=== PATIENT | female | born 1975 | race Caucasian/White ===

== ENCOUNTER 2016-11-01 17:52 | Emergency (ER) | payer OTHER ==
[~2016-11-01] VITALS: Ht 162.6 cm; Wt 97.5 kg
[~2016-11-01 17:52] MED LIST: ALPR1TAB2 PO; BACL10TA4 PO; HYDR-4452 PO; LIRA6SOL SUBQ; METF500T PO; ZOLP10TA1 PO
[2016-11-01 18:03] VITALS: BP 124/90
--- NOTE | 2016-11-01 18:18 | NUR ---
Patient ambulated to bed 4. RN evaluating patient at bedside.
--- NOTE | 2016-11-01 18:20 | NUR ---
41 F C/O SHARP 10/10 GENERALIZED ABDOMINAL PAIN WITH N/V/DAND HEAD ACHE X 2 DAYS, AND SACRAL PAIN; S/P FALL 3 MONTHS AGO; PT DENIES ANY URINARY COMPLAINTS; AAOX4 WITH EVEN AND STEADY GAIT;RR ARE EVEN AND UNLABORED; PT DENIES ANY FEVER, CP, SOB, OR COUGH AT THIS TIME; VSS; PATIENT POSITIONED FOR COMFORT; HOB ELEVATED; BEDRAILS UP X2; BED DOWN. ER MD MADE AWARE OF PT STATUS.
[2016-11-01] MEDS ORDERED: KETOROLAC 30 MG/ML VIAL IM ONE (18:30)
[2016-11-01] MEDS ORDERED: diphenhydrAMINE 50 MG/ML VIAL IM ONE (18:30)
[2016-11-01] MEDS ORDERED: ONDANSETRON 4 MG ODT PO ONE (18:30)
[2016-11-01 19:08] LABS: BASOPHILS # (AUTO) 0.3 K/uL (0.00-0.22); EOSINOPHILS # (AUTO) 0.3 K/uL (0-0.4); HEMATOCRIT 44.9 % (36-48); HEMOGLOBIN 14.4 g/dL (12.0-16.0); MEAN CORPUSCULAR HEMOGLOBIN 27 pg (27-31); MEAN CORPUSCULAR HGB CONC 32 g/dL (33-37); MEAN CORPUSCULAR VOLUME 83 fL (80-94); MONOCYTES # (AUTO) 0.6 K/uL (0.8-1.0); NEUTROPHILS # (AUTO) 6.8 K/uL (1.8-7.7); PLATELET COUNT (AUTO) 322 K/uL (140-450); RED BLOOD CELL COUNT(AUTO) 5.39 MIL/uL (4.20-5.40); RED CELL DISTRIBUTION WIDTH 13.2 % (11.6-13.7)
--- NOTE | 2016-11-01 19:15 | NUR ---
GOT REPORT FROM FLETCHER MENDOZA. PT. RESTING IN BED, COMPLAINING OF PAIN. DR. PHOENIX MADE AWARE.
[2016-11-01 19:18] LABS: APPEARANCE,URINE CLEAR (CLEAR); BILIRUBIN,URINE NEGATIVE (NEGATIVE); BLOOD, URINE NEGATIVE (NEGATIVE); COLOR,URINE YELLOW (YELLOW); LEUKOCYTE ESTERASE ,URINE NEGATIVE (NEGATIVE); NITRITE, URINE NEGATIVE (NEGATIVE); PH,URINE 6.5 (5.0-9.0); UGLUCOSE 2+ (NEGATIVE)
[2016-11-01 19:25] LABS: CREATININE 0.8 mg/dL (0.6-1.3)
[2016-11-01 19:32] LABS: ALBUMIN 3.5 g/dL (3.4-5.0); TOTAL BILIRUBIN 0.2 mg/dL (0.0-1.0)
[2016-11-01 19:33] LABS: BARBITURATE, URINE POS. ng/ml (NEG <=200); BENZODIAZEPINE, URINE POS. ng/mL (NEG <=200); CANNABINOID, URINE NEG. ng/mL (NEG <=50); COCAINE, URINE NEG. ng/mL (NEG <=300); OPIATE, URINE POS. ng/mL (NEG <=2000); PHENCYCLIDINE SCREEN,URINE NEG. ng/mL (NEG <=25)
[2016-11-01] MEDS ORDERED: KETOROLAC 30 MG/ML VIAL IVP ONE (19:50)
[2016-11-01] MEDS ORDERED: NACL 0.9% 1,000 ML IV ONE (19:50)
[2016-11-01] MEDS ORDERED: ONDANSETRON 4 MG/2 ML VIAL IVP ONE (20:25)
--- NOTE | 2016-11-01 21:00 | NUR ---
Patient discharged with v/s stable. Written and verbal after care instructions given and explained. Patient alert, oriented and verbalized understanding of instructions. Ambulatory with steady gait. All questions addressed prior to discharge. ID band removed. Patient advised to follow up with PMD. Rx of LANTUS 100UNIT/ML given. Patient educated on indication of medication including possible reaction and side effects. Opportunity to ask questions provided and answered.
[2016-11-01 21:05] VITALS: BP 140/81
== END 2016-11-01 21:00 | disposition home or self-care (01) ==
LOC: MED 17:52
DX: R51 Headache (principal); E11.65 Type 2 diabetes mellitus with hyperglycemia; I10 Essential (primary) hypertension; Z90.710 Acquired absence of both cervix and uterus; Z79.84 Long term (current) use of oral hypoglycemic drugs; Z79.899 Other long term (current) drug therapy
CPT/HCPCS: 36415; 80053; 80305; 81003; 81025; 82948; 83690; 85025; 96361; 96374; 96375; 99284; J1200; J1885; J2405; J7030; S0119

== ENCOUNTER 2016-11-18 14:06 | Emergency (ER) | payer OTHER ==
[~2016-11-18] VITALS: Ht 165.1 cm; Wt 103.4 kg
[~2016-11-18 14:06] MED LIST changes: +ACET-787 PO; -HYDR-4452 PO
[2016-11-18 14:30] VITALS: BP 113/75
--- NOTE | 2016-11-18 15:34 | NUR ---
PATIENT IS A 41 YO FEMALE BIB SELF FOR HEADACHE AWAKE AND ALERT ABLE TO AMBULATE TOOK NORCO THIS AM WITHOUT RELIEF.
[2016-11-18] MEDS ORDERED: HYDROmorphone PFS 2 MG/ML SYR IM ONE (15:50)
[2016-11-18] MEDS ORDERED: diphenhydrAMINE 50 MG/ML VIAL IM ONE (15:50)
--- NOTE | 2016-11-18 16:04 | NUR ---
CURRENTLY HEADACHE IS 10/10 WITH NAUSEA---MEDICATED FOR PAIN CONTROL , WILL REASSESS IN 30MINS
[2016-11-18 17:01] VITALS: BP 132/69
--- NOTE | 2016-11-18 17:02 | NUR ---
Patient discharged with v/s stable. Written and verbal after care instructions given and explained. Patient verbalized understanding. Wheel Chair Assisted with to car. All questions addressed prior to discharge. Advised to follow up with PMD.
== END 2016-11-18 17:02 | disposition home or self-care (01) ==
LOC: MED 14:06
DX: G43.909 Migraine, unspecified, not intractable, without status migrainosus (principal); E11.9 Type 2 diabetes mellitus without complications; I10 Essential (primary) hypertension; Z90.710 Acquired absence of both cervix and uterus; Z88.8 Allergy status to other drugs, medicaments and biological substances
CPT/HCPCS: 96372; 99284; J1170; J1200

== ENCOUNTER 2016-12-21 13:52 | Inpatient (IN) | payer OTHER ==
[~2016-12-21] VITALS: Ht 165.1 cm; Wt 99.4 kg
[2016-12-21 13:57] VITALS: BP 151/79
--- NOTE | 2016-12-21 14:00 | NUR ---
PT AMBULATED TO BED 7.
--- NOTE | 2016-12-21 14:10 | NUR ---
41F BIB FAMILY C/O NAUSEA AND VOMITING WITH HEADACHE X 1 MONTH; PT STATES " I'VE BEEN VOMITING ALL DAY", BUT STATES NO DIARRHEA AT THIS TIME; ABDOMEN SOFT, NON-TENDER, ACTIVE BOWEL SOUNDS X 4 QUADRANTS; PT C/O ANTERIOR HEADACHE, PRESSURE, RADIATES "ALL OVER MY HEAD", 11/30 X 1 MONTH; PT STATES NO TRAUMA OR INJURY TO SITE AT THIS TIME; PT STATES NO VISION CHANGES OR BLURRY VISION AT THIS TIME; PT AA&OX4, PERRLA, BL LUNG SOUNDS CLEAR, RR EVEN/UNLABORED, SKIN IS WARM/DRY/INTACT AT THIS TIME; STEADY GAIT; TACHYCARDIA NOTED ON THE MONITOR AT THIS TIME; PT STATES NO SHORTNESS OF BREATH OR NO CHEST PAIN AT THIS TIME; PT PLACED ON MONITOR, RESTING IN BED WITH HOB ELEVATED AND IN LOWEST POSITION; POSITIONED FOR COMFORT; ER MD MADE AWARE OF STATUS. WILL CONTINUE TO MONITOR.
--- NOTE | 2016-12-21 14:16 | NUR ---
ER MD DR. GALLOWAY EVALUATING PT AT BEDSIDE.
[2016-12-21] MEDS ORDERED: NACL 0.9% 1,000 ML IV SCH (14:17)
[2016-12-21] MEDS ORDERED: MORPHINE SULFATE 4 MG/ML SYR IVP ONE (14:20)
[2016-12-21] MEDS ORDERED: MAG SULF 2000 MG/WATER PREMIX 50 ML IV ONE (14:20)
[2016-12-21] MEDS ORDERED: ONDANSETRON 4 MG/2 ML VIAL IVP ONE (14:20)
[2016-12-21 14:46] LABS: HEMATOCRIT 47.7 % (36-48); HEMOGLOBIN 15.6 g/dL (12.0-16.0); MEAN CORPUSCULAR HEMOGLOBIN 26 pg (27-31); MEAN CORPUSCULAR HGB CONC 33 g/dL (33-37); MEAN CORPUSCULAR VOLUME 81 fL (80-94); PLATELET COUNT (AUTO) 388 K/uL (140-450); RED BLOOD CELL COUNT(AUTO) 5.93 MIL/uL (4.20-5.40); WHITE BLOOD COUNT (AUTO) 18.3 K/uL (4.8-10.8)
[2016-12-21 14:55] LABS: APPEARANCE,URINE CLEAR (CLEAR); BLOOD, URINE 1+ (NEGATIVE); COLOR,URINE YELLOW (YELLOW); LEUKOCYTE ESTERASE ,URINE NEGATIVE (NEGATIVE); NITRITE, URINE NEGATIVE (NEGATIVE); UGLUCOSE 3+ (NEGATIVE)
[2016-12-21 14:58] LABS: BILIRUBIN,URINE NEGATIVE (NEGATIVE)
[2016-12-21 14:59] LABS: LYMPHOCYTES % (MANUAL) 17 % (20-46); MONOCYTES % (MANUAL) 5 % (5-12)
[2016-12-21 15:03] LABS: BARBITURATE, URINE POS. ng/ml (NEG <=200); BENZODIAZEPINE, URINE NEG. ng/mL (NEG <=200); CANNABINOID, URINE NEG. ng/mL (NEG <=50); COCAINE, URINE NEG. ng/mL (NEG <=300); OPIATE, URINE NEG. ng/mL (NEG <=2000); PHENCYCLIDINE SCREEN,URINE NEG. ng/mL (NEG <=25)
[2016-12-21] MEDS ORDERED: cefTRIAXone 2,000 MG in DEXTROSE 5% 100 ML IV ONE (15:10)
[2016-12-21] MEDS ORDERED: NACL 0.9% 1,000 ML IV ONE (15:10)
[2016-12-21 15:11] LABS: ALBUMIN 4.3 g/dL (3.4-5.0); ANION GAP 26.2 (8-16); CARBON DIOXIDE 16.5 mmol/L (21-32); CREATININE 1.3 mg/dL (0.6-1.3); POTASSIUM 4.7 mmol/L (3.5-5.1); TOTAL BILIRUBIN 0.8 mg/dL (0.0-1.0)
[2016-12-21] MEDS ORDERED: INSULIN HUMAN REGULAR 100 UNITS in NACL 0.9% 100 ML IV ONE (15:20)
[2016-12-21] MEDS ORDERED: POTASSIUM CHL 20 MEQ/NACL 0.9% 1,000 ML IV ONE (15:20)
[2016-12-21] MEDS ORDERED: cefTRIAXone 2,000 MG VIAL ONE (15:22)
[2016-12-21 15:26] LABS: RBC,URINE 0-5 (RARE) /HPF (0-5); WBC,URINE 0-5 (RARE) /HPF (0-5)
--- NOTE | 2016-12-21 15:29 | NUR ---
PT TAKEN TO CT VIA [facility] ACCOMPANIED BY [facility] AT THIS TIME.
--- NOTE | 2016-12-21 16:10 | NUR ---
ER MD DR. GALLOWAY AT BEDSIDE FOR LUMBAR PUNCTURE PROCEDURE.
[2016-12-21] MEDS ORDERED: LIDOCAINE 1% ***ER ONLY *** 50 ML ONE (16:19)
--- NOTE | 2016-12-21 16:24 | NUR ---
INCREASED MAGNESIUM TO FINISH IN 30 MINUTES PER ER MD DR. GALLOWAY VERBAL ORDER. PT POSITIONED FOR COMFORT; VSS AT THIS TIME; WILL CONTINUE TO MONITOR.
[2016-12-21 16:31] LABS: PROTHROMBIN TIME 10.3 secs (10.8-13.4)
--- NOTE | 2016-12-21 16:35 | NUR ---
INCREASE ROCEPHIN TO FINISH IN 30 MINUTES PER ER MD DR. GALLOWAY VERBAL ORDER.
--- NOTE | 2016-12-21 17:09 | NUR ---
PER ER MD DR. GALLOWAY, SPOKE WITH ADMITING PHYSICIAN DR. EVANGELISTA, PT TO BE ON INSULIN DRIP FOR 1 HR, THEN PATIENT MAY GO TO TELEMETRY ON A SLIDING SCALE; PT AA&O WITH RR EVEN/UNLABORED; WILL CONTINUE TO MONITOR.
[2016-12-21 17:24] LABS: CSF GLUCOSE 280 mg/dL (40-70)
--- NOTE | 2016-12-21 17:30 | NUR ---
PT APPEARS TO BE RESTING COMFORTABLY IN BED; VSS; POSITIONED FOR COMFORT; RR EVEN/UNLABORED; WILL CONTINUE TO MONITOR.
[2016-12-21] MEDS ORDERED: HYDROcodone/APAP 5/325 MG 1 TAB TAB PO PRN (18:00)
[2016-12-21] MEDS ORDERED: ACETAMINOPHEN 325 MG TAB PO PRN (18:00)
[2016-12-21] MEDS ORDERED: DEXTROSE 50% 50 ML SYR IVP PRN (18:00)
[2016-12-21] MEDS ORDERED: LORazepam 2 MG/ML VIAL IVP PRN (18:00)
--- NOTE | 2016-12-21 18:14 | NUR ---
REPORT GIVEN TO ARMANDO BYNUM.
--- NOTE | 2016-12-21 18:15 | NUR ---
RECEIVED REPORT FROM ER NURSE QI. WILL GET ROOM READY AND AWAIT FOR PT ARRIVAL TO UNIT.
--- NOTE | 2016-12-21 18:15 | NUR ---
Patient will be admitted to care of DR. MORALES. Admited to TELEMETRY. Will go to room 120B. Belongings list completed. Report to FLETCHER HARMON.
--- NOTE | 2016-12-21 18:30 | NUR ---
PT ARRIVED TO [facility] VIA [facility] ACCOMPANIED BY RNS, AND PROFESSOR OF THEOLOGY. PT AMBULATED FROM [facility] TO BED WITH ASSIST. PT PUT ON TELE MONITOR. ID BAND APPLIED. MRSA SCREEN DONE. VS: HR 120 BP 143/75 O2 SAT 98% ON RA, TEMP 98.7 TEMPORAL ARTERY, RR 24. IV INFUSING NS-KCL 1,000ML BAG AT 200ML/HR TO LEFT UPPER ARM. INSTRUCTED PT TO USE CALL LIGHT FOR HELP AND WHEN NEED TO GET OUT OF BED FOR SAFETY. PT VERBALIZED UNDERSTANDING. BED IN LOW POSITION. WHEELS LOCKED, CALL LIGHT WITHIN REACH. WILL CONTINUE TO MONITOR.
[2016-12-21 19:00] VITALS: BP 156/87
--- NOTE | 2016-12-21 19:08 | NUR ---
ENDORSED PT TO TEAM OTR TRUCK DRIVER NURSE SOLE AT BEDSIDE FOR CONTINUITY OF CARE. PT IS AWAKE AND ORIENTED, IN STABLE CONDITION.
--- NOTE | 2016-12-21 19:10 | NUR ---
Admitted from ER, with chief complaint of HEADACHE AND NAUSEA, DX LEUKOCYTOSIS, UNCONTROLLED HYPERGLYCEMIA. 41 y/o, Female, AOX4, DROWSY AT TIMES, ABLE TO SPEAK FULL SENTENCES, ABLE TO VERBALIZE NEEDS. PT C/O NAUSEA, WILL MEDICATE. PT C/O HEADACHE AND GENERALIZED WEAKNESS, PT REFUSES PAIN MEDICATION AT THIS TIME. PT DENIES CHEST PAIN, SOB OR S/S OF ACUTE DISTRESS. FOOD AND BEVERAGE CASHIER IN PLACE. LEFT KNEE BRUISE NOTED. IV ACCESS TO LEFT UPPER ARM 22G AND RIGHT AC 22G ASYMPTOMATIC, PATENT AND INTACT. DISCUSSED AND REVIEWED PLAN OF CARE WITH PT. PT STATED "OK," WILL CONTINUE WITH CONSTANT REINFORCEMENT. oriented to call light, bed, phone,television, bathroom, smoking policy, visiting hours, procedures, ID bracelet on. Belongings list checked. ALL NEEDS MET. SAFETY MEASURES ENSURED. CALL LIGHT WITHIN REACH. WILL CONTINUE TO MONITOR.
[2016-12-21] MEDS ORDERED: PNEUMOCOCCAL VACCINE 23 MCG/0.5 ML VIAL IMVAC PRN (20:00)
[2016-12-21] MEDS ORDERED: INFLUENZA VIRUS VACCINE QUAD 0.5 ML SYR IMVAC PRN (20:00)
[2016-12-21] MEDS: NACL 0.9% 1,000 ML IV SCH (20:20)
[2016-12-21] MEDS: BLOOD GLUCOSE MONITORING 1 DEV DEV FS SCH (20:20)
[2016-12-21] MEDS: INSULIN LISPRO SLIDING SCALE 100 UNITS/ML VIAL SUBQ PRN (20:23)
[2016-12-21] MEDS: ZOLPIDEM 10 MG TAB PO SCH (20:24)
[2016-12-21] MEDS: BACLOFEN 10 MG TAB PO SCH (20:24)
[2016-12-21] MEDS: ALPRAZolam 0.5 MG TAB PO SCH (20:24)
[2016-12-21] MEDS: ONDANSETRON 4 MG/2 ML VIAL IVP PRN (20:37)
--- NOTE | 2016-12-21 20:37 | NUR ---
PT C/O NAUSEA, ADMINISTERED ZOFRAN IVP PRN ORDERED WITH EDUCATION. BLOOD SUGAR 332, INSULIN COVERAGE ADMINISTERED WITH EVENING SNACK. REMAINING DUE MEDS ADMINISTERED WITH EDUCATION. PT STATED "OK," TOLERATED MEDS WELL. ALL NEEDS MET. IVF INFUSING WELL. SAFETY MEASURES ENSURED. CALL LIGHT WITHIN REACH. WILL CONTINUE TO MONITOR.
[2016-12-21 22:00] VITALS: BP 123/68
[2016-12-22] VITALS: BP 124/71
--- NOTE | 2016-12-22 00:01 | NUR ---
PT SLEEPING COMFORTABLY, AROUSABLE TO NAME, NO S/S OF ACUTE DISTRESS. ALL NEEDS MET. IVF INFUSING WELL. SAFETY MEASURES ENSURED. CALL LIGHT WITHIN REACH. WILL CONTINUE TO MONITOR.
[2016-12-22] MEDS: MORPHINE SULFATE 2 MG/ML SYR IVP PRN ×3 (02:22→20:46)
[2016-12-22] MEDS: ONDANSETRON 4 MG/2 ML VIAL IVP PRN ×3 (02:26→20:39)
--- NOTE | 2016-12-22 02:26 | NUR ---
PT C/O NAUSEA, ADMINISTERED ZOFRAN IVP PRN ORDERED WITH EDUCATION. PT C/O HEADACHE, ADMINISTERED MORPHINE IVP PRN ORDERED WITH EDUCATION. ASSISTED PT TO RESTROOM, PT ABLE TO AMBULATE WITH STANDBY ASSIST, REPORTS WEAKNESS. ALL NEEDS MET. IVF INFUSING WELL. SAFETY MEASURES ENSURED. CALL LIGHT WITHIN REACH. WILL CONTINUE TO MONITOR.
[2016-12-22] MEDS: NACL 0.9% 1,000 ML IV SCH ×3 (03:59→23:59)
[2016-12-22 04:00] VITALS: BP 146/90
--- NOTE | 2016-12-22 04:35 | NUR ---
PT SLEEPING COMFORTABLY, NO S/S OF ACUTE DISTRESS, RESPIRATIONS EVEN AND UNLABORED. ALL NEEDS MET. IVF INFUSING WELL. SAFETY MEASURES ENSURED. CALL LIGHT WITHIN REACH. WILL CONTINUE TO MONITOR.
[2016-12-22] MEDS: INSULIN LISPRO SLIDING SCALE 100 UNITS/ML VIAL SUBQ PRN ×4 (06:09→21:03)
[2016-12-22] MEDS: BLOOD GLUCOSE MONITORING 1 DEV DEV FS SCH ×4 (06:09→20:26)
--- NOTE | 2016-12-22 07:15 | NUR ---
ENDORSED PLAN OF CARE TO AM NURSE. CONDITION STABLE.
--- NOTE | 2016-12-22 07:20 | NUR ---
REPORT RECEIVED FROM HUB CUTTER APPRENTICE AT PT BEDSIDE. PT PUT ON TELE MONITOR. IV NOTED TO THE TO LEFT UPPER ARM, INTACT, PATENT, AND INFUSING WELL WITH NS. BED IN LOW POSITION, CALL LIGHT WITHIN REACH. WILL CONTINUE TO MONITOR.
[2016-12-22 07:41] LABS: HEMATOCRIT 44.6 % (36-48); HEMOGLOBIN 14.7 g/dL (12.0-16.0); MEAN CORPUSCULAR HEMOGLOBIN 27 pg (27-31); MEAN CORPUSCULAR HGB CONC 33 g/dL (33-37); MEAN CORPUSCULAR VOLUME 81 fL (80-94); PLATELET COUNT (AUTO) 349 K/uL (140-450); RED BLOOD CELL COUNT(AUTO) 5.51 MIL/uL (4.20-5.40); RED CELL DISTRIBUTION WIDTH 13.3 % (11.6-13.7); WHITE BLOOD COUNT (AUTO) 16.1 K/uL (4.8-10.8)
[2016-12-22 08:00] LABS: ALBUMIN 3.6 g/dL (3.4-5.0); ANION GAP 17.3 (8-16); CARBON DIOXIDE 21.6 mmol/L (21-32); CREATININE 0.9 mg/dL (0.6-1.3); MAGNESIUM 2.1 mg/dL (1.8-2.4); PHOSPHORUS 1.6 mg/dL (2.5-4.9); POTASSIUM 3.9 mmol/L (3.5-5.1); TOTAL BILIRUBIN 0.5 mg/dL (0.0-1.0)
[2016-12-22] MEDS ORDERED: metFORMIN 500 MG TAB PO SCH (08:00)
[2016-12-22 08:08] LABS: LYMPHOCYTES % (MANUAL) 16 % (20-46); MONOCYTES % (MANUAL) 6 % (5-12)
[2016-12-22 08:11] VITALS: BP 145/89
[2016-12-22] MEDS ORDERED: LIRAGLUTIDE 1.8 MG SUBQ SCH (09:00)
--- NOTE | 2016-12-22 09:03 | NUR ---
PATIENT HAS BEEN SCREENED AND CATEGORIZED HIGH NUTRITION RISK. PATIENT WILL BE SEEN WITHIN 1-2 DAYS OF ADMISSION. 12/22/16 -12/23/[address]
[2016-12-22] MEDS: BACLOFEN 10 MG TAB PO SCH ×2 (09:07→20:58)
[2016-12-22] MEDS: ALPRAZolam 0.5 MG TAB PO SCH ×2 (09:08→20:59)
[2016-12-22] MEDS: HYDROcodone/APAP 10/325 MG 1 TAB TAB PO SCH ×3 (09:08→16:36)
[2016-12-22] MEDS: ENOXAPARIN 40 MG/0.4 ML SYR SUBQ SCH (09:08)
--- NOTE | 2016-12-22 09:45 | NUR ---
CHANGED PT DIET TO NPO EXCEPT MEDS FOR US ABD.
--- NOTE | 2016-12-22 12:30 | NUR ---
TOOK PT TO RESTROOM FOR URINATION. MINIMAL ASSISTANCE PROVIDED. PT REFUSED TO WEAR YELLOW SOCKS, PREFERRED HER OWN SLIPPERS. BED ALARM IS ACTIVATED. WILL CONTINUE TO MONITOR.
--- NOTE | 2016-12-22 12:37 | NUR ---
CM NOTE CONCURRENT REVIEW FAXED TO [facility] ([phone], ATTN: HELLEN [phone]) AND [facility] (FAX: [phone], C: [phone])
--- NOTE | 2016-12-22 13:02 | NUR ---
12/22/16 RD INITIAL ASSESSMENT COMPLETED PLEASE REFER TO NUTRITION ASSESSMENT UNDER CARE ACTIVITY FOR ESTIMATED NUTRITIONAL NEEDS. 1. CONTINUE NPO MEDICALLY NECESSARY PER MD 2. WHEN APPROPRIATE AD[facility]ANCE [facility] [address] PROVIDED PT WITH DM DIET EDUCATIONAL HANDOUTS. 4. RD TO FOLLOW-UP 3-5 DAYS, MODERATE RISK MONICA [address]VER RD
[2016-12-22 13:09] VITALS: BP 136/78
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
--- NOTE | 2016-12-22 16:04 | NUR ---
US ABD WAS DONE AT BEDSIDE.
[2016-12-22 17:39] VITALS: BP 155/101
--- NOTE | 2016-12-22 18:00 | NUR ---
PT EATING DINNER, FAMILY AT BEDSIDE. NO S/S OF ACUTE DISTRESS NOTED. WILL CONTINUE TO MONITOR.
[2016-12-22] MEDS ORDERED: SODIUM PHOS / POTASSIUM PHOS 1 PKT PDR PO SCH (19:13)
--- NOTE | 2016-12-22 19:27 | NUR ---
ENDORSED PT TO THE FILM PROJECTOR OPERATOR NURSE. PT IS IN STABLE CONDITION, WITHOUT S/S OF DISTRESS.
--- NOTE | 2016-12-22 19:35 | NUR ---
RECEIVED REPORT FROM DAY RN, PATIENT IS USING HER CELLPHONE AT THIS TIME, NO S/S OF ACUTE DISTRESS NOTED, IV PATENT AND INTACT, INFUSING NS AT 100ML/HR, CALL LIGHT WITHIN REACH, SAFETY MEASURE ENSURED, WILL CONTINUE TO MONITOR.
[2016-12-22 20:00] VITALS: BP 143/89
[2016-12-22] MEDS: ZOLPIDEM 10 MG TAB PO SCH (20:59)
[2016-12-22] MEDS ORDERED: INSULIN DETEMIR 100 UNITS/ML 10 ML VIAL SUBQ SCH ×2 (21:00)
--- NOTE | 2016-12-22 21:13 | NUR ---
DUE MEDICATION GIVEN, PATIENT TOLERATED WELL. NO S/S OF ACUTE DISTRESS NOTED, RESPIRATION EVEN AND UNLABORED, WILL CONTINUE TO MONITOR.
--- NOTE | 2016-12-22 23:40 | NUR ---
IV INFILTRATED. UNABLE TO START A NEW IV, INFORMED CHARGE NURSE. CHARGE NURSE WILL START A NEW IV.
[2016-12-23] VITALS: BP 133/78
--- NOTE | 2016-12-23 00:35 | NUR ---
INFORMED ER NURSE REGARDING IV INFILTRATION. THE ER CHARGE NURSE IS AWARE AND WILL COME TO START A NEW IV
--- NOTE | 2016-12-23 01:30 | NUR ---
NEW IV 20G RT AC. PATIENT TOLERATED WELL.
[2016-12-23] MEDS: MORPHINE SULFATE 2 MG/ML SYR IVP PRN (02:53)
[2016-12-23] MEDS: ONDANSETRON 4 MG/2 ML VIAL IVP PRN (02:55)
--- NOTE | 2016-12-23 02:55 | NUR ---
PATIENT STATED HEADACHE 6/10, BP 134/87, HR 94, MORPHINE GIVEN ORDERED. WILL CONTINUE TO MONITOR.
[2016-12-23 04:00] VITALS: BP 127/75
--- NOTE | 2016-12-23 04:08 | NUR ---
PATIENT WAS SLEEPING, EASY TO AROUSE. VITAL SIGNS TAKEN, WITHIN NORMAL RANGE. NO S/S OF ACUTE DISTRESS NOTED, RESPIRATION EVEN AND UNLABORED, CALL LIGHT WITHIN REACH, SAFETY MEASURE ENSURED, WILL CONTINUE TO MONITOR.
[2016-12-23 06:14] LABS: BASOPHILS # (AUTO) 0.2 K/uL (0.00-0.22); BASOPHILS % (AUTO) 2.1 % (0.0-2.0); EOSINOPHILS # (AUTO) 0.2 K/uL (0-0.4); EOSINOPHILS % (AUTO) 2.2 % (0.0-4.0); HEMATOCRIT 39.9 % (36-48); HEMOGLOBIN 13.5 g/dL (12.0-16.0); LYMPHOCYTES # (AUTO) 3.9 K/uL (2.5-16.5); LYMPHOCYTES % (AUTO) 40.9 % (20.5-51.1); MEAN CORPUSCULAR HEMOGLOBIN 27 pg (27-31); MEAN CORPUSCULAR HGB CONC 34 g/dL (33-37); MEAN CORPUSCULAR VOLUME 80 fL (80-94); MONOCYTES # (AUTO) 0.7 K/uL (0.8-1.0); MONOCYTES % (AUTO) 7.9 % (1.7-9.3); NEUTROPHILS # (AUTO) 4.4 K/uL (1.8-7.7); NEUTROPHILS % (AUTO) 46.9 % (42.2-75.2); PLATELET COUNT (AUTO) 274 K/uL (140-450); RED CELL DISTRIBUTION WIDTH 12.8 % (11.6-13.7); WHITE BLOOD COUNT (AUTO) 9.4 K/uL (4.8-10.8)
[2016-12-23] MEDS: INSULIN LISPRO SLIDING SCALE 100 UNITS/ML VIAL SUBQ PRN (06:32)
[2016-12-23] MEDS: BLOOD GLUCOSE MONITORING 1 DEV DEV FS SCH ×2 (06:33→12:14)
[2016-12-23 06:40] LABS: ALBUMIN 3.1 g/dL (3.4-5.0); ANION GAP 12.2 (8-16); CARBON DIOXIDE 27.1 mmol/L (21-32); CREATININE 0.5 mg/dL (0.6-1.3); POTASSIUM 3.3 mmol/L (3.5-5.1); TOTAL BILIRUBIN 0.5 mg/dL (0.0-1.0)
--- NOTE | 2016-12-23 06:52 | NUR ---
PATIENT IS SLEEPING, EASY TO AROUSE, NO S/S OF ACUTE DISTRESS NOTED, RESPIRATION EVEN AND UNLABORED, CALL LIGHT WITHIN REACH, SAFETY MEASURE ENSURED, WILL CONTINUE TO MONITOR.
--- NOTE | 2016-12-23 07:15 | NUR ---
ENDORSED PLAN OF CARE TO DAY FLETCHER CHOU, PATIENT IS IN STABLE CONDITION. NO S/S OF DISTRESS.
--- NOTE | 2016-12-23 07:21 | NUR ---
RECEIVED PT IN BED. AWAKE. ALERT ORIENTEDX4. NO SOB NOTED. DENIES ANY PAIN OR DISCOMFORT AT THIS TIME. PT AMBULATORY. SAFETY PRECAUTION IN PLACE. CALL LIGHT WITHIN REACH.
--- NOTE | 2016-12-23 07:59 | NUR ---
PT COMPLAINS OF DIFFICULTY/PAINFUL SWALLOWING. DR. KOEHLER MADE AWARE, AND MADE AWARE OF POTASSIUM LEVEL 3.3. WITH ORDERS MADE AND CARRIED OUT TORB.
[2016-12-23 08:00] VITALS: BP 140/87
[2016-12-23] MEDS ORDERED: POTASSIUM CHLORIDE 10 MEQ TABER PO SCH (08:30)
[2016-12-23] MEDS: BACLOFEN 10 MG TAB PO SCH (08:33)
[2016-12-23] MEDS: HYDROcodone/APAP 10/325 MG 1 TAB TAB PO SCH (08:34)
[2016-12-23] MEDS: ALPRAZolam 0.5 MG TAB PO SCH (08:34)
[2016-12-23] MEDS: ENOXAPARIN 40 MG/0.4 ML SYR SUBQ SCH (08:40)
[2016-12-23] MEDS ORDERED: SODIUM PHOS / POTASSIUM PHOS 1 PKT PDR PO SCH (09:00)
--- NOTE | 2016-12-23 09:19 | NUR ---
CM NOTE CONCURRENT REVIEW FAXED TO [facility] [phone], ATTN: HELLEN # [phone]
[2016-12-23] MEDS ORDERED: GABA400C PO (09:53)
[2016-12-23] MEDS: NACL 0.9% 1,000 ML IV SCH (09:59)
[2016-12-23 11:45] VITALS: BP 142/93
--- NOTE | 2016-12-23 11:49 | NUR ---
DISCARDED DILAUDED 0.5MG IVP TAKEN FROM PYXIS PER PACU ORDER. WITNESSED BY ANOTHER NURSE. DR. MON MADE AWARE THAT PT STILL COMPLAINS OF PAIN AFETR DOSE OF DILAUDID OERED 0.5MG FOR Q3 HRS WAS GIVEN. AND DR. MON MADE AWARE OF MAGNESIUM LEVEL 1.5, AND MADE AWARE THAT PT REQUESTED TO SEE PT. MD TO SEE PT. Addendum: 12/23/16 at 1151 by Malorie Christian RN DISREGARD ABOVE DOCUMENTATION. WRONG PT.
--- NOTE | 2016-12-23 12:10 | NUR ---
DISCHARGE TEACHINGS AND HEALTH INSTRUCTIONS EXPLAINED AND GIVEN TO PT. PT VERBALIZED UNDERSTANDING. PT SIGNED DISCHARGE PAPERS. AT BEDSIDE. REMINDED TO FOLLOW UP WITH PCP WITHIN 7 DAYS. PROVIDED WITH PRESCRIPTION. NO SOB NOTED. DENIES ANY PAIN OR DISCOMFORT AT THIS TIME. IV CANNULA REMOVED AND INTACT. NAME ARMBAND REMOVED.
--- NOTE | 2016-12-23 12:15 | NUR ---
PT REFUSED INSULIN COVERAGE SINCE SHE IS GOING HOME. VERBALIZED UNDERSTANDING REGARDING REFUSAL FOR INSULIN. AT BEDSIDE. PT GETTING READY FOR DISCHARGE.
--- NOTE | 2016-12-23 12:30 | NUR ---
PT WHEELED OUT TO THE HOSPITAL PARKING LOT PER PAYROLL CONSULTANT ASSIST, GOING TO THEIR PRIVATE OWNED VEHICLE WITH . NO SOB NOTED. DENIES ANY PAIN OR DISCOMFORT AT THIS TIME. PT DISCHARGED ON STABLE CONDITION.
== END 2016-12-23 12:30 | disposition home or self-care (01) | DRG 420 ==
LOC: MED 13:52 → MTU 18:06
PROVIDERS: ADMIT Hospitalist; ATTEND Hospitalist
PROC: 009U3ZX Drainage of Spinal Canal, Percutaneous Approach, Diagnostic (ICD-10-PCS; principal; 2016-12-21)
PROC: 3E0234Z Introduction of Serum, Toxoid and Vaccine into Muscle, Percutaneous Approach (ICD-10-PCS; 2016-12-23)
PROC: 3E0234Z Introduction of Serum, Toxoid and Vaccine into Muscle, Percutaneous Approach (ICD-10-PCS; 2016-12-23)
DX: E11.10 Type 2 diabetes mellitus with ketoacidosis without coma (principal); N17.9 Acute kidney failure, unspecified; R63.0 Anorexia; D72.829 Elevated white blood cell count, unspecified; E11.9 Type 2 diabetes mellitus without complications; I10 Essential (primary) hypertension; G43.909 Migraine, unspecified, not intractable, without status migrainosus; E86.0 Dehydration; E66.9 Obesity, unspecified; R79.89 Other specified abnormal findings of blood chemistry; Z91.018 Allergy to other foods; Z68.36 Body mass index [BMI] 36.0-36.9, adult; Z90.49 Acquired absence of other specified parts of digestive tract; Z98.891 History of uterine scar from previous surgery; Z23 Encounter for immunization; Z79.899 Other long term (current) drug therapy; Z79.84 Long term (current) use of oral hypoglycemic drugs
CPT/HCPCS: 36415; 36600; 62270; 70450; 76700; 80053; 80305; 81001; 81025; 82009; 82803; 82948; 83690; 83735; 84100; 84157; 84484; 84703; 85025; 85610; 85730; 87040; 87070; 87081; 87086; 87205; 90658; 90732; 96365; 96368; 96375; 99291; J0696; J1650; J1815; J2001; J2270; J2405; J3475; J7030; Q0092

== ENCOUNTER 2017-06-30 19:38 | Emergency (ER) | payer OTHER ==
[~2017-06-30] VITALS: Ht 165.1 cm; Wt 114.8 kg
[~2017-06-30 19:38] MED LIST changes: +GABA400C PO
[2017-06-30 19:46] VITALS: BP 137/50
--- NOTE | 2017-06-30 19:55 | NUR ---
PT. BIB VIA W/C TO [facility]
--- NOTE | 2017-06-30 21:03 | NUR ---
PT AT XRAY AT THIS TIME. WHEN SHE RETURNS PT WILL BE PLACED IN BED 1
--- NOTE | 2017-06-30 21:20 | NUR ---
PT TO BED 1 AFTER XRAY
--- NOTE | 2017-06-30 21:30 | NUR ---
PATIENT PRESENTS TO ED WITH C/O PAIN TO BACK OF HEAD AND GENERALIZED BODY PAIN S/P FALL THIS AM AT HOME AROUND 10AM. PT TOOK NORCO AND BACLOFEN AT HOME THIS AM. MED HX: DM/INSOMNIA/ANXIETY PT DENIES N/V/D; SKIN IS PINK/WARM/DRY; AAOX4; LUNGS CLEAR BL; HR EVEN AND REGULAR; PT DENIES ANY FEVER, CP, SOB, OR COUGH AT THIS TIME; PATIENT STATES PAIN OF 10/10 AT THIS TIME; PATIENT POSITIONED FOR COMFORT; HOB ELEVATED; BEDRAILS UP X2; BED DOWN. ER MD MADE AWARE OF PT STATUS.
[2017-06-30] MEDS ORDERED: HUMSLIDE (21:41)
[2017-06-30] MEDS ORDERED: ALPR2TAB1 PO (21:41)
[2017-06-30] MEDS ORDERED: INSU100S22 SC (21:41)
[2017-06-30] MEDS ORDERED: GABA300C PO (21:41)
[2017-06-30] MEDS ORDERED: MORPHINE SULFATE 4 MG/ML SYR IM ONE (23:25)
[2017-06-30 23:53] VITALS: BP 129/91
== END 2017-06-30 23:52 | disposition home or self-care (01) ==
LOC: MED 19:38
DX: S92.354A Nondisplaced fracture of fifth metatarsal bone, right foot, initial encounter for closed fracture (principal); Z88.8 Allergy status to other drugs, medicaments and biological substances; E11.9 Type 2 diabetes mellitus without complications; Z90.49 Acquired absence of other specified parts of digestive tract; Z79.899 Other long term (current) drug therapy; W18.39XA Other fall on same level, initial encounter; Y93.89 Activity, other specified; Y99.8 Other external cause status; Y92.89 Other specified places as the place of occurrence of the external cause
CPT/HCPCS: 73562; 73610; 73630; 96372; 99284; J2270

== ENCOUNTER 2017-07-22 17:11 | Emergency (ER) | payer OTHER ==
[~2017-07-22] VITALS: Ht 165.1 cm; Wt 112.2 kg
[~2017-07-22 17:11] MED LIST changes: -ALPR1TAB2 PO; +ALPR2TAB1 PO; +GABA300C PO; -GABA400C PO; +HUMSLIDE; +INSU100S22 SC; -LIRA6SOL SUBQ; -METF500T PO
[2017-07-22 17:16] VITALS: BP 134/65
--- NOTE | 2017-07-22 17:23 | NUR ---
PATIENT AMBULATED TO ER BED 4
--- NOTE | 2017-07-22 17:24 | NUR ---
REPORT GIVEN TO FLETCHER KATE
--- NOTE | 2017-07-22 17:26 | NUR ---
PATIENT PRESENTS TO ED WITH C/O RT KNEE AND RT 5TH DIGIT OF FOOT PAIN; SEEN ON 06/30/2017 FOR METATARSAL FX. HX; DM, ANXIETY . PATIENT STATES PAIN OF 10/10 AT THIS TIME; VSS; PATIENT POSITIONED FOR COMFORT; HOB ELEVATED; BEDRAILS UP X2; BED DOWN. ER MD MADE AWARE OF PT STATUS.
[2017-07-22] MEDS ORDERED: KETOROLAC 60 MG/2 ML VIAL IM ONE (17:50)
[2017-07-22] MEDS ORDERED: MORPHINE SULFATE 2 MG/ML SYR IM ONE (17:50)
[2017-07-22 18:18] VITALS: BP 134/65
== END 2017-07-22 18:18 | disposition home or self-care (01) ==
LOC: MED 17:11
DX: S92.354D Nondisplaced fracture of fifth metatarsal bone, right foot, subsequent encounter for fracture with routine healing (principal); M25.461 Effusion, right knee; E11.9 Type 2 diabetes mellitus without complications; Z79.4 Long term (current) use of insulin; Z91.048 Other nonmedicinal substance allergy status; X58.XXXD Exposure to other specified factors, subsequent encounter
CPT/HCPCS: 29505; 96372; 99284; J1885; J2270

== ENCOUNTER 2017-07-24 11:39 | Emergency (ER) | payer OTHER ==
[~2017-07-24] VITALS: Ht 165.1 cm; Wt 110.7 kg
[2017-07-24 12:07] VITALS: BP 159/97
[2017-07-24] MEDS ORDERED: NACL 0.9% 1,000 ML IV SCH (12:32)
[2017-07-24] MEDS ORDERED: ONDANSETRON 4 MG/2 ML VIAL IVP ONE (12:35)
[2017-07-24 13:11] LABS: BASOPHILS # (AUTO) 0.1 K/uL (0.00-0.22); BASOPHILS % (AUTO) 0.8 % (0.0-2.0); EOSINOPHILS # (AUTO) 0.2 K/uL (0-0.4); EOSINOPHILS % (AUTO) 1.7 % (0.0-4.0); HEMATOCRIT 43.4 % (36-48); HEMOGLOBIN 14.3 g/dL (12.0-16.0); LYMPHOCYTES # (AUTO) 2.3 K/uL (2.5-16.5); MEAN CORPUSCULAR HEMOGLOBIN 25 pg (27-31); MEAN CORPUSCULAR HGB CONC 33 g/dL (33-37); MEAN CORPUSCULAR VOLUME 77.3 fL (80-94); MONOCYTES # (AUTO) 0.6 K/uL (0.8-1.0); MONOCYTES % (AUTO) 7.1 % (1.7-9.3); NEUTROPHILS # (AUTO) 5.8 K/uL (1.8-7.7); NEUTROPHILS % (AUTO) 64.4 % (42.2-75.2); PLATELET COUNT (AUTO) 297 K/uL (140-450); RED BLOOD CELL COUNT(AUTO) 5.62 MIL/uL (4.20-5.40); RED CELL DISTRIBUTION WIDTH 14.9 % (11.6-13.7)
[2017-07-24 13:27] LABS: APPEARANCE,URINE CLEAR (CLEAR); BILIRUBIN,URINE NEGATIVE (NEGATIVE); BLOOD, URINE NEGATIVE (NEGATIVE); COLOR,URINE YELLOW (YELLOW); LEUKOCYTE ESTERASE ,URINE NEGATIVE (NEGATIVE); NITRITE, URINE NEGATIVE (NEGATIVE); UGLUCOSE 3+ (NEGATIVE)
[2017-07-24 13:31] LABS: ALBUMIN 3.5 g/dL (3.4-5.0); ANION GAP 17.3 (8-16); CARBON DIOXIDE 19.7 mmol/L (21-32); CREATININE 0.8 mg/dL (0.6-1.3); TOTAL BILIRUBIN 0.2 mg/dL (0.0-1.0)
[2017-07-24] MEDS ORDERED: NACL 0.9% 1,000 ML IV ONE ×2 (14:00)
[2017-07-24] MEDS ORDERED: INSULIN REGULAR, HUMAN 100 UNIT/ML VIAL SUBQ ONE (14:00)
[2017-07-24] MEDS ORDERED: POTASSIUM CHLORIDE 10 MEQ TABER PO ONE (14:00)
[2017-07-24 18:43] VITALS: BP 141/82
== END 2017-07-24 18:43 | disposition home or self-care (01) ==
LOC: MED 11:39
DX: S89.91XA Unspecified injury of right lower leg, initial encounter (principal); E11.65 Type 2 diabetes mellitus with hyperglycemia; E86.0 Dehydration; Z91.048 Other nonmedicinal substance allergy status
CPT/HCPCS: 36415; 70450; 80053; 81003; 81025; 82150; 82948; 83690; 84484; 84703; 85025; 93005; 96361; 96374; 99285; J1815; J2405; J7030; 96372

== ENCOUNTER 2017-07-29 14:38 | Inpatient (IN) | payer OTHER ==
[~2017-07-29] VITALS: Ht 157.5 cm; Wt 95.3 kg
--- NOTE | 2017-07-29 14:38 | NUR ---
PT BIBA ALS TO BED 4
--- NOTE | 2017-07-29 14:40 | NUR ---
42/F BIBA PER EMS : FAMILY STATED PT HAS BEEN BEHAVING INAPPROPRIATE WITH SPOKEN OUTBURST AND AGGITATION. DENIES INJURY/TRAUMA.HX--IDDM.SKIN IS PINK/WARM/DRY;LUNGS CLEAR BL.PATIENT DENIES PAIN AT THIS TIME. PATIENT POSITIONED FOR COMFORT; HOB ELEVATED; BEDRAILS UP X2; BED DOWN. ER MD MADE AWARE OF PT STATUS.
[2017-07-29 14:42] VITALS: BP 165/98
[2017-07-29] MEDS ORDERED: LORazepam 2 MG/ML VIAL IVP ONE (14:50)
[2017-07-29] MEDS ORDERED: NACL 0.9% 1,000 ML IV ONE ×2 (14:50→17:20)
--- NOTE | 2017-07-29 14:53 | NUR ---
DR BAILEY EVALUATING AT BEDSIDE
[2017-07-29] MEDS ORDERED: HALOPERIDOL IM 5 MG/ML VIAL IM ONE (15:00)
--- NOTE | 2017-07-29 15:10 | NUR ---
STRAIT CATH URINE 200 CC, YELLOW.
[2017-07-29 15:17] LABS: BASOPHILS # (AUTO) 0.1 K/uL (0.00-0.22); BASOPHILS % (AUTO) 0.6 % (0.0-2.0); EOSINOPHILS % (AUTO) 0.2 % (0.0-4.0); HEMOGLOBIN 16.4 g/dL (12.0-16.0); LYMPHOCYTES # (AUTO) 1.9 K/uL (2.5-16.5); LYMPHOCYTES % (AUTO) 16.9 % (20.5-51.1); MEAN CORPUSCULAR HEMOGLOBIN 26 pg (27-31); MEAN CORPUSCULAR HGB CONC 33 g/dL (33-37); MEAN CORPUSCULAR VOLUME 78.7 fL (80-94); MONOCYTES # (AUTO) 0.5 K/uL (0.8-1.0); MONOCYTES % (AUTO) 4.3 % (1.7-9.3); PLATELET COUNT (AUTO) 366 K/uL (140-450); RED BLOOD CELL COUNT(AUTO) 6.36 MIL/uL (4.20-5.40); RED CELL DISTRIBUTION WIDTH 15.1 % (11.6-13.7); WHITE BLOOD COUNT (AUTO) 11.5 K/uL (4.8-10.8)
--- NOTE | 2017-07-29 15:28 | NUR ---
SISTER AT BEDSIDE. SISTER STATED THAT PT LIVES WITH HER AND HER KIDS.
[2017-07-29 15:29] LABS: ANION GAP 25.2 (8-16); CARBON DIOXIDE 17.1 mmol/L (21-32); CHLORIDE 97 mmol/L (98-107); GFR ARICAN-AMERICAN 78 mL/min (>90); GLUCOSE 389 mg/dL (74-106); POTASSIUM 4.3 mmol/L (3.5-5.1); SODIUM SERUM 135 mmol/L (136-145); UREA NITROGEN, BLOOD 21 mg/dL (7-18)
--- NOTE | 2017-07-29 15:35 | NUR ---
XRAY AT BEDSIDE
[2017-07-29 15:36] LABS: ALBUMIN 3.9 g/dL (3.4-5.0); ASPARTATE AMINOTRANSFERASE 17 U/L (15-37); TOTAL BILIRUBIN 0.4 mg/dL (0.0-1.0)
[2017-07-29 15:39] LABS: APPEARANCE,URINE CLEAR (CLEAR); BILIRUBIN,URINE 1+ (NEGATIVE); BLOOD, URINE NEGATIVE (NEGATIVE); LEUKOCYTE ESTERASE ,URINE NEGATIVE (NEGATIVE); NITRITE, URINE NEGATIVE (NEGATIVE); UGLUCOSE 2+ (NEGATIVE)
[2017-07-29 15:51] LABS: BARBITURATE, URINE POS. ng/ml (NEG <=200); BENZODIAZEPINE, URINE NEG. ng/mL (NEG <=200); CANNABINOID, URINE NEG. ng/mL (NEG <=50); COCAINE, URINE NEG. ng/mL (NEG <=300); OPIATE, URINE NEG. ng/mL (NEG <=2000); PHENCYCLIDINE SCREEN,URINE NEG. ng/mL (NEG <=25)
[2017-07-29 15:54] LABS: ACETAMINOPHEN < 0.5 ug/ml (10-30); SALICYLATE < 2.8 mg/dL (2.8-20.0)
[2017-07-29 15:57] LABS: COLOR,URINE STRAW (YELLOW)
--- NOTE | 2017-07-29 16:17 | NUR ---
MOTHER AT BEDSIDE.
--- NOTE | 2017-07-29 16:19 | NUR ---
RT AT BEDSIDE FOR BLOOD GAS.
--- NOTE | 2017-07-29 16:30 | NUR ---
Patient appears to be SLEEPING comfortably in bed. BP 128/77, P 107, R 20 , Respirations even and unlabored.WILL CONTINUE & MONITOR.
[2017-07-29] MEDS ORDERED: INSULIN REGULAR, HUMAN 100 UNIT/ML VIAL SUBQ ONE (17:20)
--- NOTE | 2017-07-29 17:43 | NUR ---
ADMITTING TRIED TO CONTACT [facility] AGAIN FOR AN UPDATE ON AUTHORIZATION, UGO TOLD THEM SHE WOULD CONTACT THE ONCALL AGAIN
--- NOTE | 2017-07-29 17:59 | NUR ---
Patient appears to be SLEEPING comfortably in bed. BP 127/77, P 99, R 24 , Respirations even and unlabored.WILL CONTINUE & MONITOR. SISTER AT BEDSIDE.
--- NOTE | 2017-07-29 18:16 | NUR ---
DR BAILEY REEVALUATING AT BEDSIDE
--- NOTE | 2017-07-29 18:33 | NUR ---
PT AAO X 3 , ORIENTED TO HER NAME & FAMILY . PT STATED " I DON'T KNOW WHAT HAPPEN THIS AM".
[2017-07-29] MEDS ORDERED: ONDANSETRON 4 MG/2 ML VIAL IVP PRN (18:35)
[2017-07-29] MEDS ORDERED: LORazepam 2 MG/ML VIAL IVP PRN (18:35)
[2017-07-29] MEDS ORDERED: DEXTROSE 50% 50 ML SYR IVP PRN (18:35)
[2017-07-29] MEDS ORDERED: ACETAMINOPHEN 325 MG TAB PO PRN (18:35)
[2017-07-29 19:20] VITALS: BP 133/79
--- NOTE | 2017-07-29 19:20 | NUR ---
Admitted from ER TO TELEMETRY UNIT , with chief complaint of ALTERED LEVEL OF CONSCIOUSNESS , 42 y/o ,Female, Cooperative, AWAKE, A/OX2, DROWSY, ANSWERS QUESTIONS BY NODDING HEAD. MOST OF ADMITTING DATA OBTAINED FROM PATIENT MEDICAL RECORDS AND SISTER NOY. RESPIRATION EVEN AND UNLABORED. IV OF NS INFUSING AT 250 ML/HR, RIGHT WRIST G22. ASSISTED TO BR TO VOID, GAIT STEADY. NOTED DISCOLORATION ON THE LEFT KNEE. SKIN INTACT. oriented to call light, bed, phone,television, bathroom, smoking policy,visiting hours, procedures. NEEDS REINFORCEMENT. ID bracelet on. Belongings list checked.
--- NOTE | 2017-07-29 19:22 | NUR ---
Patient will be admitted to care of dr pagan. Admited to tele. Will go to room 107a. Belongings list completed. Report to barber perez.
[2017-07-29] MEDS: NACL 0.9% 1,000 ML IV SCH (20:00)
--- NOTE | 2017-07-29 21:00 | NUR ---
RECEIVED REPORT AT PT BEDSIDE FROM LEXX WREN, FOR CONTINUITY OF CARE. PATIENT IS A/OX2 ON ROOM AIR. PT IS NOT REALLY SPEAKING, WHEN ASKED SOMETHING SHE ONLY SAYS "NO." PT SKIN INTACT, SHE JUST HAS MILD DISCOLORATION TO LEFT KNEE. RESPIRATIONS EVEN AND UNLABORED. UPDATED BOARD. VITAL SIGNS WITHIN NORMAL LIMITS. PT STABLE, NO SIGNS OF DISTRESS NOTED AT THIS TIME. BED IN LOWEST POSITION, BED ALARM ON. CALL LIGHT WITHIN REACH, WILL CONTINUE TO MONITOR.
[2017-07-29] MEDS: INSULIN LISPRO SLIDING SCALE 100 UNITS/ML VIAL SUBQ PRN (21:08)
[2017-07-29] MEDS: BLOOD GLUCOSE MONITORING 1 DEV DEV FS SCH (21:08)
--- NOTE | 2017-07-29 21:10 | NUR ---
CHECKED BLOOD SUGAR AND ADMINISTERED HUMALOG COVERAGE 6 UNITS FOR BS 290. PT TOLERATED WELL
--- NOTE | 2017-07-29 21:45 | NUR ---
RECEIVED REPORT AT PT BEDSIDE FROM LEXX WREN, FOR CONTINUITY OF CARE. PATIENT IS A/OX2 ON ROOM AIR. PT IS NOT REALLY SPEAKING, WHEN ASKED SOMETHING SHE ONLY SAYS "NO." PT SKIN INTACT, SHE JUST HAS MILD DISCOLORATION TO LEFT KNEE. RESPIRATIONS EVEN AND UNLABORED. UPDATED BOARD. VITAL SIGNS WITHIN NORMAL LIMITS. PT STABLE, NO SIGNS OF DISTRESS NOTED AT THIS TIME. BED IN LOWEST POSITION, BED ALARM ON. CALL LIGHT WITHIN REACH, WILL CONTINUE TO MONITOR. Addendum: 07/30/17 at 0433 by Ines Jessica RN PLEASE DISREGARD.
[2017-07-30] VITALS: BP 122/75
--- NOTE | 2017-07-30 | NUR ---
VITAL SIGNS WITHIN NORMAL LIMITS. PT STABLE, NO SIGNS OF DISTRESS NOTED AT THIS TIME. BED IN LOWEST POSITION, BED ALARM ON. CALL LIGHT WITHIN REACH, WILL CONTINUE TO MONITOR.
[2017-07-30 00:52] LABS: CREATINE KINASE MB 0.6 ng/mL (0-3.6)
--- NOTE | 2017-07-30 01:25 | NUR ---
PT TRYING TO LEAVE HOSPITAL AND IS STILL SHOWING SIGNS OF ALTERED MENTAL STATUS AND IS VERY AGITATED/ANXIOUS. PT NOT REPLYING, OR ONLY SAYING, "NO" AND "THIS IS ALL SOME KIND OF JOKE" WHEN ASKED WHAT WAS THE JOKE SHE WOULD REPLY "IT'S MY JOKE." PT NOT MAKING ANY SENSE AND JUST WANTS TO LEAVE. CALLED BOYFRIEND AND SISTER, THEY TALKED TO HER OVER THE PHONE AND SHE WENT BACK IN HER ROOM. ADMINISTERED ATIVAN PER ORDER. PT TOLERATED WELL. PT SISTER SAID SHE WILL CALL HER MOTHER TO SEE IF SOMEONE CAN COME STAY WITH PT. SHE WILL CALL BACK AND INFORM US.
[2017-07-30 04:00] VITALS: BP 144/85
--- NOTE | 2017-07-30 05:43 | NUR ---
PT SLIGHTLY CALM NOW.
[2017-07-30] MEDS: BLOOD GLUCOSE MONITORING 1 DEV DEV FS SCH (06:05)
[2017-07-30] MEDS: INSULIN LISPRO SLIDING SCALE 100 UNITS/ML VIAL SUBQ PRN (06:05)
--- NOTE | 2017-07-30 06:43 | NUR ---
PATIENT HAS BEEN SCREENED AND CATEGORIZED MODERATE NUTRITION RISK. PATIENT WILL BE SEEN WITHIN 3-5 DAYS OF ADMISSION. 08/01/17 - 08/03/17 ALEX PEARSON MBA, RD
--- NOTE | 2017-07-30 07:34 | NUR ---
ENDORSED PT TO DAY SHIFT RN FOR CONTINUITY OF CARE. PT IN STABLE CONDITION.
[2017-07-30] MEDS: NACL 0.9% 1,000 ML IV SCH (07:51)
--- NOTE | 2017-07-30 07:55 | NUR ---
PATIENT AOX4, VERBALIZED THAT SHE WANTS TO GO HOME BECAUSE HER SON'S BIRTHDAY IS TOMORROW AND SHE HAS TO PREPARE FOR IT. RN PERSUADED HER TO STAY AND SPEAK TO THE DOCTOR TO CLEAR HER FIRST. PATIENT VERBALIZED UNDERSTANDING.
[2017-07-30 08:00] VITALS: BP 127/73
--- NOTE | 2017-07-30 08:05 | NUR ---
DR. COONEY IN TO SEE THE PATIENT. WILL AWAIT FOR HIS EVALUATION AND ORDERS.
--- NOTE | 2017-07-30 08:25 | NUR ---
PATIENT REFUSED LOVENOX INJECTION DUE AT 0900. PATIENT AMBULATED ON STEADY GAIT TO BATHROOM. PATIENT REPORTED THAT SHE VOIDED WELL HAD A BM MOVEMENT. PATIENT NOW BACK IN BED, NO SIGNS OR SYMPTOMS OF DISTRESS NOTED ON ROOM AIR. SAFETY PRECAUTION IN PLACE, 1:1 SITTER PRESENT, WILL CONTINUE TO MONITOR PATIENT.
--- NOTE | 2017-07-30 08:30 | NUR ---
DISCHARGE INSTRUCTION AND EDUCTION GIVEN TO PATIENT. PATIENT VERBALIZED UNDERSTANDING AND SIGNED ALL PAPERWORK. IV REMOVED, IV CATHETER INTACT, MINIMAL BLOOD NOTED. ID BANDS CUT. TELE MONITOR REMOVED. PATIENT WILL NOW CHANGE INTO HER OWN CLOTHING AND WAIT FOR HER TO COME AND PICK HER UP TO GO HOME.
--- NOTE | 2017-07-30 08:55 | NUR ---
RECEIVED REPORT FROM SOLAR INSTALLATION TECHNICIAN NURSE AT BEDSIDE FOR CONTINUITY OF CARE. PATIENT IS AOX4 ON ROOM AIR. IV TO R WRIST #22, INTACT, ASYMPTOMATIC, AND PATENT, INFUSING NS AT 75 ML/HR. PT SKIN INTACT, PRESENT OF MILD DISCOLORATION TO LEFT KNEE. RESPIRATIONS EVEN AND UNLABORED. PATIENT DENIES PAIN AT THIS TIME. UPDATED BOARD. VERBALIZED PLAN OF CARE TO PATIENT, PATIENT VERBALIZED UNDERSTANDING. VITAL SIGNS WITHIN NORMAL LIMITS. PT STABLE, NO SIGNS OF DISTRESS NOTED AT THIS TIME. SAFETY PRECAUTION IN PLACE, 1:1 SITTER PRESENT, BED IN LOWEST POSITION, BED ALARM ON. CALL LIGHT WITHIN REACH, WILL CONTINUE TO MONITOR PATIENT. Addendum: 07/30/17 at 1110 by Sharath Dominique RN WRONG TIME: CORRECT TIME IS 0735.
--- NOTE | 2017-07-30 08:55 | NUR ---
PATIENT AMBULATED OFF FLOOR ON STEADY GAIT WITH RN, , AND SON BUT SIDE. PATIENT TOOK ALL HER BELONGINGS WITH HER. PATIENT IN STABLE CONDITION.
[2017-07-30] MEDS ORDERED: ENOXAPARIN 30 MG/0.3 ML SYR SUBQ SCH (09:00)
--- NOTE | 2017-08-02 07:45 | NUR ---
RETRO ER REPORT, H&P AND DISCHARGE SUMMARY FAXED TO [facility] [phone] HELLEN [phone]
== END 2017-07-30 08:55 | disposition home or self-care (01) | DRG 420 ==
LOC: MED 14:38 → MTU 18:46
PROVIDERS: ADMIT Hospitalist; ATTEND Hospitalist
DX: E11.10 Type 2 diabetes mellitus with ketoacidosis without coma (principal); G93.40 Encephalopathy, unspecified; E11.42 Type 2 diabetes mellitus with diabetic polyneuropathy; E11.65 Type 2 diabetes mellitus with hyperglycemia; F41.9 Anxiety disorder, unspecified; E86.0 Dehydration; G47.00 Insomnia, unspecified; E66.01 Morbid (severe) obesity due to excess calories; T42.6X5A Adverse effect of other antiepileptic and sedative-hypnotic drugs, initial encounter; Y92.89 Other specified places as the place of occurrence of the external cause; Z87.81 Personal history of (healed) traumatic fracture; Z91.09 Other allergy status, other than to drugs and biological substances; Z79.4 Long term (current) use of insulin; Z79.899 Other long term (current) drug therapy; Z68.38 Body mass index [BMI] 38.0-38.9, adult
CPT/HCPCS: 36415; 36600; 70450; 71045; 80053; 80305; 81003; 82550; 82553; 82803; 82948; 84484; 85025; 87081; 93005; 96361; 96372; 96374; 99291; C1758; G0480; G0482; J1630; J1815; J2060; J7030; Q0092

== ENCOUNTER 2018-09-21 13:27 | Emergency (ER) | payer OTHER ==
[~2018-09-21] VITALS: Ht 157.5 cm; Wt 103.0 kg
[~2018-09-21 13:27] MED LIST changes: -ACET-787 PO; -ALPR2TAB1 PO; -BACL10TA4 PO; -ZOLP10TA1 PO
[2018-09-21 13:52] VITALS: BP 146/106
--- NOTE | 2018-09-21 13:55 | NUR ---
PT TO WAIT IN ER LOBBY. PT HAS HIGH BP BUT HX OF HTN, AA0X4
--- NOTE | 2018-09-21 14:20 | NUR ---
PT AMBULATED TO BED 8 WITH STEADY GAIT
--- NOTE | 2018-09-21 14:39 | NUR ---
BIB BY SPOUSE. 43 Y/O FEMALE C/O RIGHT UPPER ABDOMINAL PAIN AND VOMITING X 2 DAYS. DECREASED APPETITE. PAIN 10/10. SHE REPORTS DIZZINESS AND SWEATING SINCE LAST NIGHT. AMBULATED TO BED WITH STEADY GATE. SIDE RAILS X 1. ER TO EVALUATE PATIENT. PMH- DM, HTN
[2018-09-21 14:54] LABS: HEMATOCRIT 46.8 % (36-48); HEMOGLOBIN 15.9 g/dL (12.0-16.0); MEAN CORPUSCULAR HEMOGLOBIN 28 pg (27-31); MEAN CORPUSCULAR HGB CONC 34 g/dL (33-37); PLATELET COUNT (AUTO) 312 K/uL (140-450); RED CELL DISTRIBUTION WIDTH 13.3 % (11.6-13.7); WHITE BLOOD COUNT (AUTO) 12.3 K/uL (4.8-10.8)
[2018-09-21 14:55] LABS: APPEARANCE,URINE CLEAR (CLEAR); BILIRUBIN,URINE NEGATIVE (NEGATIVE); BLOOD, URINE NEGATIVE (NEGATIVE); COLOR,URINE YELLOW (YELLOW); LEUKOCYTE ESTERASE ,URINE NEGATIVE (NEGATIVE); NITRITE, URINE NEGATIVE (NEGATIVE); PH,URINE 6.5 (5.0-9.0); UGLUCOSE 3+ (NEGATIVE)
[2018-09-21 15:28] LABS: ALBUMIN 4.1 g/dL (3.4-5.0); ANION GAP 19.4 (8-16); CARBON DIOXIDE 22.4 mmol/L (21-32); POTASSIUM 3.8 mmol/L (3.5-5.1)
--- NOTE | 2018-09-21 15:35 | NUR ---
PT SITTING UP ACTING APPRORIATELY. AAO X4, FULL CLEAR SPEECH.
[2018-09-21 15:39] LABS: LYMPHOCYTES % (MANUAL) 5 % (20-46); MONOCYTES % (MANUAL) 3 % (5-12)
[2018-09-21] MEDS ORDERED: ONDANSETRON 4 MG ODT PO ONE ×2 (15:50→16:35)
[2018-09-21] MEDS ORDERED: KETOROLAC 60 MG/2 ML VIAL IM ONE (15:50)
--- NOTE | 2018-09-21 16:34 | NUR ---
DR ROSSI AT BEDSIDE FOR PT EVALUATION
[2018-09-21] MEDS ORDERED: MORPHINE SULFATE 4 MG/ML SYR IM ONE (16:35)
[2018-09-21 17:33] VITALS: BP 165/64
--- NOTE | 2018-09-21 17:33 | NUR ---
Patient discharged with v/s stable. Written and verbal after care instructions given and explained. Patient alert, oriented and verbalized understanding of instructions. Ambulatory with steady gait. All questions addressed prior to discharge. ID band removed. Patient advised to follow up with PMD. Rx of zofran 8mg, motrin 800 mg, and [place] 5mg-325mg given. Patient educated on indication of medication including possible reaction and side effects. Opportunity to ask questions provided and answered.
== END 2018-09-21 17:33 | disposition home or self-care (01) ==
LOC: MED 13:27
DX: R10.11 Right upper quadrant pain (principal); R11.2 Nausea with vomiting, unspecified; R19.7 Diarrhea, unspecified; E11.9 Type 2 diabetes mellitus without complications; I10 Essential (primary) hypertension; F12.10 Cannabis abuse, uncomplicated; Z90.49 Acquired absence of other specified parts of digestive tract; Z98.890 Other specified postprocedural states; Z79.4 Long term (current) use of insulin; Z79.899 Other long term (current) drug therapy; Z88.8 Allergy status to other drugs, medicaments and biological substances
CPT/HCPCS: 36415; 80053; 81003; 81025; 83690; 85025; 96372; 99283; J1885; J2270; Q0162

== ENCOUNTER 2018-09-23 10:35 | Emergency (ER) | payer OTHER ==
[~2018-09-23] VITALS: Ht 165.1 cm; Wt 101.6 kg
--- NOTE | 2018-09-23 10:43 | NUR ---
Pt taken to bed 6.
[2018-09-23 10:45] VITALS: BP 177/90
--- NOTE | 2018-09-23 10:50 | NUR ---
Dr. Melissa evaluating patient at bedside.
[2018-09-23] MEDS ORDERED: ONDANSETRON 4 MG/2 ML VIAL IVP ONE (10:55)
[2018-09-23] MEDS ORDERED: NACL 0.9% 1,000 ML IV ONE ×2 (10:55→11:50)
[2018-09-23] MEDS ORDERED: MORPHINE SULFATE 4 MG/ML SYR IVP ONE (10:55)
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
--- NOTE | 2018-09-23 11:40 | NUR ---
ATTEMPTED TO GET AN IV LINE, FAILED 3 ATTEMPTS, FRUIT TESTER SVETA WILL TRY.
[2018-09-23 11:41] LABS: BASOPHILS # (AUTO) 0.1 K/uL (0.00-0.22); BASOPHILS % (AUTO) 0.4 % (0.0-2.0); EOSINOPHILS % (AUTO) 0.1 % (0.0-4.0); HEMATOCRIT 48.9 % (36-48); HEMOGLOBIN 16.4 g/dL (12.0-16.0); LYMPHOCYTES # (AUTO) 1.1 K/uL (2.5-16.5); MEAN CORPUSCULAR HEMOGLOBIN 28 pg (27-31); MEAN CORPUSCULAR HGB CONC 34 g/dL (33-37); MEAN CORPUSCULAR VOLUME 82.7 fL (80-94); MONOCYTES # (AUTO) 0.3 K/uL (0.8-1.0); MONOCYTES % (AUTO) 2.3 % (1.7-9.3); NEUTROPHILS # (AUTO) 12.5 K/uL (1.8-7.7); PLATELET COUNT (AUTO) 323 K/uL (140-450); RED BLOOD CELL COUNT(AUTO) 5.91 MIL/uL (4.20-5.40); RED CELL DISTRIBUTION WIDTH 13.6 % (11.6-13.7); WHITE BLOOD COUNT (AUTO) 13.9 K/uL (4.8-10.8)
[2018-09-23 11:50] LABS: ANION GAP 17.2 (8-16); CARBON DIOXIDE 24.5 mmol/L (21-32); POTASSIUM 3.7 mmol/L (3.5-5.1)
--- NOTE | 2018-09-23 11:52 | NUR ---
Dr. Melissa re-evaluating patient at bedside.
[2018-09-23 11:56] LABS: ALBUMIN 4.2 g/dL (3.4-5.0)
[2018-09-23 11:58] LABS: LYMPHOCYTES % (AUTO) 7.8 % (20.5-51.1); NEUTROPHILS % (AUTO) 89.4 % (42.2-75.2)
--- NOTE | 2018-09-23 12:00 | NUR ---
PT PLACED ON BEDSIDE GUEST RELATIONS COORDINATOR
[2018-09-23] MEDS ORDERED: INSULIN REGULAR, HUMAN 100 UNIT/ML VIAL SUBQ ONE (12:05)
--- NOTE | 2018-09-23 12:18 | NUR ---
pt left to ct
[2018-09-23 12:36] LABS: BILIRUBIN,URINE 1+ (NEGATIVE); BLOOD, URINE NEGATIVE (NEGATIVE); COLOR,URINE YELLOW (YELLOW); LEUKOCYTE ESTERASE ,URINE NEGATIVE (NEGATIVE); NITRITE, URINE NEGATIVE (NEGATIVE); UGLUCOSE 3+ (NEGATIVE)
[2018-09-23 12:46] LABS: APPEARANCE,URINE SLIGHTLY HAZY (CLEAR)
[2018-09-23 12:48] LABS: RBC,URINE 0-5 /HPF (0-5); WBC,URINE 0-5 /HPF (0-5)
[2018-09-23] MEDS ORDERED: DICYCLOMINE HCL LIQUID 20 MG, ALUMINUM HYD/MAG/SIMETHICONE 30 ML, LIDOCAINE VISCOUS 2% ... PO ONE ×3 (14:10)
[2018-09-23] MEDS ORDERED: LORazepam 1 MG TAB PO ONE (14:50)
[2018-09-23 15:03] VITALS: BP 123/70
--- NOTE | 2018-09-23 15:03 | NUR ---
Patient discharged with v/s stable. Written and verbal after care instructions given and explained. Patient alert, oriented and verbalized understanding of instructions. Ambulatory with steady gait. All questions addressed prior to discharge. ID band removed. Patient advised to follow up with PMD. Rx of ZANTAC & ZOFRAN given. Patient educated on indication of medication including possible reaction and side effects. Opportunity to ask questions provided and answered. PT BEING DRIVEN HOME BY FAMILY MEMBER.
== END 2018-09-23 15:03 | disposition home or self-care (01) ==
LOC: MED 10:35
DX: K29.70 Gastritis, unspecified, without bleeding (principal); K59.00 Constipation, unspecified; F41.9 Anxiety disorder, unspecified; F12.10 Cannabis abuse, uncomplicated; E11.65 Type 2 diabetes mellitus with hyperglycemia; Z90.49 Acquired absence of other specified parts of digestive tract; Z90.710 Acquired absence of both cervix and uterus; Z79.4 Long term (current) use of insulin; Z79.899 Other long term (current) drug therapy; Z88.8 Allergy status to other drugs, medicaments and biological substances
CPT/HCPCS: 36415; 74176; 80053; 81001; 81025; 82948; 83690; 85025; 96361; 96372; 96374; 96375; 99284; J1815; J2270; J2405; J7030

== ENCOUNTER 2019-03-23 19:09 | Emergency (ER) | payer OTHER ==
[~2019-03-23] VITALS: Ht 165.1 cm; Wt 100.2 kg
[2019-03-23 19:34] VITALS: BP 137/98
--- NOTE | 2019-03-23 19:41 | NUR ---
PT AMBULATED TO CHAIR D
--- NOTE | 2019-03-23 19:41 | NUR ---
C/O COLD SX X 4 DAYS. SORE THROAT, DRY, PRODUCTIVE COUGH PRESENT. NO RESP DISTRESS NOTED. LUNG SOUNDS CLEAR ALL THROUGHOUT. VSS. RATES PAIN 8/10 AND IS LOCATED ON THE HEAD AND BODY AND DESCRIBES IT ACHING. NKA. PMH:DM.
[2019-03-23] MEDS ORDERED: KETOROLAC 30 MG/ML VIAL IM STA (20:32)
[2019-03-23 22:13] VITALS: BP 137/98
--- NOTE | 2019-03-23 22:13 | NUR ---
Patient discharged with v/s stable. Written and verbal after care instructions given and explained. Patient alert, oriented and verbalized understanding of instructions. Ambulatory with steady gait. All questions addressed prior to discharge. ID band removed. Patient advised to follow up with PMD. Rx of IBUPROFEN WAS given. Patient educated on indication of medication including possible reaction and side effects. Opportunity to ask questions provided and answered. PT HAD SOME PAIN 3/10 PRIOR TO D/C.
== END 2019-03-23 22:13 | disposition home or self-care (01) ==
LOC: MED 19:09
DX: B34.9 Viral infection, unspecified (principal); E11.9 Type 2 diabetes mellitus without complications; I10 Essential (primary) hypertension; Z79.4 Long term (current) use of insulin; Z79.899 Other long term (current) drug therapy
CPT/HCPCS: 71045; 96372; 99283; J1885

== ENCOUNTER 2019-03-25 07:22 | Emergency (ER) | payer OTHER ==
[~2019-03-25] VITALS: Ht 165.1 cm; Wt 100.2 kg
[2019-03-25 07:27] VITALS: BP 109/77
--- NOTE | 2019-03-25 07:34 | NUR ---
43 Y/O F C/C BODYACHES/HEADACHE X8 DAYS. PER PT THROBBING SENSATION; 10/ PAIN. HAS TAKEN MOTRIN 600MG WITH NO RELIEF. PT NKA. HX DM. RX INSULIN. PT NAUSEUS. NO V/D. SIDE RAIL X1.
[2019-03-25] MEDS ORDERED: ACETAMINOPHEN EXTRA STRENGTH 500 MG TAB PO ONE (07:40)
--- NOTE | 2019-03-25 07:55 | NUR ---
PT TOLERATED FLUIDS, ERMD NOTIFIED
[2019-03-25 08:22] VITALS: BP 109/77
== END 2019-03-25 08:22 | disposition home or self-care (01) ==
LOC: MED 07:22
DX: J06.9 Acute upper respiratory infection, unspecified (principal); E11.9 Type 2 diabetes mellitus without complications
CPT/HCPCS: 99282

== ENCOUNTER 2019-03-26 17:33 | Emergency (ER) | payer OTHER ==
[~2019-03-26] VITALS: Ht 165.1 cm; Wt 100.2 kg
[2019-03-26 17:41] VITALS: BP 155/77
--- NOTE | 2019-03-26 19:00 | NUR ---
Patient transferred to bed 8 for further care. RN evaluating patient at bedside.
--- NOTE | 2019-03-26 19:15 | NUR ---
43 Y/O FEMALE SEEN IN ED YESTERDAY FOR SIMILAR SYMPTOMS. DX: UPPER RESPIRATORY INFECTION. C/O SINUS CONGESTION/PRESSURE UNRELEIVED WITH MOTRIN. PAIN IS A 10/10 THROBBING PAIN AT THIS TIME. ERMD MADE AWARE OF STATUS. SIDE RAILSX1. AT BEDSIDE. WILL CONTINUE TO MONITOR. PMH:DIABETES RX:INSULIN NKDA
[2019-03-26] MEDS ORDERED: diphenhydrAMINE 50 MG/ML VIAL IVP ONE (19:25)
[2019-03-26] MEDS ORDERED: KETOROLAC 15 MG/ML VIAL IVP ONE (19:25)
[2019-03-26] MEDS ORDERED: NACL 0.9% 1,000 ML IV ONE (19:25)
[2019-03-26] MEDS ORDERED: METOCLOPRAMIDE 10 MG/2 ML INJ VIAL IVP ONE (19:25)
[2019-03-26 21:35] VITALS: BP 135/69
--- NOTE | 2019-03-26 21:35 | NUR ---
Patient discharged with v/s stable. Written and verbal after care instructions given and explained. Patient alert, oriented and verbalized understanding of instructions. Ambulatory with steady gait. All questions addressed prior to discharge. ID band removed. Patient advised to follow up with PMD. Rx of REGLAN given. Patient educated on indication of medication including possible reaction and side effects. Opportunity to ask questions provided and answered.
--- NOTE | 2019-03-26 21:38 | NUR ---
Note billtolu in EDM - 03/26/19 at 2145 by ROHINI Patient discharged with v/s stable. Written and verbal after care instructions given and explained. Patient alert, oriented and verbalized understanding of instructions. Ambulatory with steady gait. All questions addressed prior to discharge. ID band removed. Patient advised to follow up with PMD. Rx of REGLAN given. Patient educated on indication of medication including possible reaction and side effects. Opportunity to ask questions provided and answered.
== END 2019-03-26 21:32 | disposition home or self-care (01) ==
LOC: MED 17:33
DX: G43.909 Migraine, unspecified, not intractable, without status migrainosus (principal); Z79.2 Long term (current) use of antibiotics
CPT/HCPCS: 70450; 81002; 81025; 96374; 96375; 99284; J1200; J1885; J2765; J7030

== ENCOUNTER 2019-09-30 14:38 | Emergency (ER) | payer OTHER, SELFPAY ==
--- NOTE | 2019-09-30 14:55 | NUR ---
PATIENT LEFT WITHOUT BEING TRIAGED. NO FURTHER CARE PROVIDED FOR PATIENT.
== END 2019-09-30 14:55 | disposition left against medical advice (07) ==
LOC: MED 14:38
DX: M79.10 Myalgia, unspecified site (principal); Z53.21 Procedure and treatment not carried out due to patient leaving prior to being seen by health care provider

== ENCOUNTER 2021-08-11 07:41 | Emergency (ER) | payer OTHER ==
[~2021-08-11] VITALS: Ht 180.3 cm; Wt 105.5 kg
[2021-08-11 07:42] VITALS: BP 132/82
--- NOTE | 2021-08-11 08:00 | NUR ---
patient amb to bed 12.
--- NOTE | 2021-08-11 08:46 | NUR ---
PT TAKEN TO CT VIA W/C
--- NOTE | 2021-08-11 08:46 | NUR ---
Note undone in EDM - 08/11/21 at 0846 by [email or web address] 23y male bib self due to non-radiating R sided heachache x2 days. Per patient the headache started tuesday AM, and has yet to resolve itself. Pt also experincing photophobia at this time. Speech is clear, GCS 15. Denies any CP, SOB, fever/chills. Skin is dry and intact. Pt is ambulatory with steady gait. pmh: denies nka
--- NOTE | 2021-08-11 08:47 | NUR ---
46Y FEMALE BIB SELF DUE TO BILTERAL EAR PAIN/JAW PAIN X4 DAYS. PER PATIENT SHE NOTICED FROM "PIMPLE LIKE BUMPS" ON BOTH HER EARS SHORTLY BEFORE THE PAIN STARTED. PT IS ALSO EXPERINCING DIZZINESS. UPON PALPATION HARD SMALL BUMPS NOTED ON PT EARS. PT IS A&OX4 AND EXPERINCING PHOTOPHOBIA PMH: DM, HTN NKA
--- NOTE | 2021-08-11 08:54 | NUR ---
PT BROUGHT BACK FROM CT VIA WC.
[2021-08-11] MEDS: NACL 0.9% 1,000 ML IV ONE (09:13)
[2021-08-11] MEDS: KETOROLAC 30 MG/ML VIAL IVP ONE (09:14)
[2021-08-11] MEDS: METOCLOPRAMIDE 10 MG/2 ML INJ VIAL IVP ONE (09:14)
--- NOTE | 2021-08-11 10:33 | NUR ---
Patient appears to be resting comfortably in bed. Vital Signs within normal limits. Respirations even and unlabored.
[2021-08-11] MEDS ORDERED: AMOX-1230 PO (11:21)
[2021-08-11 11:42] VITALS: BP 122/77
--- NOTE | 2021-08-11 11:42 | NUR ---
Patient discharged with v/s stable. Written and verbal after care instructions given and explained. Patient alert, oriented and verbalized understanding of instructions. Ambulatory with steady gait. All questions addressed prior to discharge. ID band removed. Patient advised to follow up with PMD. Rx of AMOXICILLIN/POTASSIUM given. Patient educated on indication of medication including possible reaction and side effects. Opportunity to ask questions provided and answered.
--- NOTE | 2021-08-11 12:18 | NUR ---
JESSICA MERIDA - [facility] MD CALLED AND SPOKE LEFT VM WITH PATIENT INFORMING SUGAR WAS ELEVATED AND IF SHE WOULD LIKE TO COME BACK TO BE EVALUATED FOR DKA. INFORMED PATIENT TO CALL BACK IF SHE WOULD LIKE TO BE SEEN
--- NOTE | 2021-08-11 14:46 | NUR ---
LATE ENTRY - SPOKE WITH PATIENT IN REGARDS TO COMING BACK TO THE ER TO HAVE BLOODWORK DONE TO RULE OUT POSSIBLE DKA. PT DENIES HAVING ANY SYMPTOMS AND STATD "SHE WILL CHECK HER SUGAR AT HOME AND WILL FOLLOW UP WITH HER PRIMARY PHYSICIAN." ERMD MADE AWARE
== END 2021-08-11 11:42 | disposition home or self-care (01) ==
LOC: MED 07:41
DX: G43.909 Migraine, unspecified, not intractable, without status migrainosus (principal); H66.93 Otitis media, unspecified, bilateral; E11.65 Type 2 diabetes mellitus with hyperglycemia; I10 Essential (primary) hypertension; Z79.4 Long term (current) use of insulin; Z79.899 Other long term (current) drug therapy
CPT/HCPCS: 70450; 82948; 96361; 96374; 96375; 99284; J1885; J2765; J7030

== ENCOUNTER 2022-01-08 09:53 | Emergency (ER) | payer OTHER ==
[~2022-01-08] VITALS: Ht 162.6 cm; Wt 74.8 kg
[~2022-01-08 09:53] MED LIST changes: +AMOX-1230 PO
[2022-01-08 09:57] VITALS: BP 141/77
[2022-01-08] MEDS ORDERED: ACETAMINOPHEN 325 MG TAB PO ONE (10:05)
--- NOTE | 2022-01-08 10:09 | NUR ---
PT SWABBED AND SENT TO LAB
[2022-01-08] MEDS ORDERED: ONDANSETRON 4 MG ODT PO ONE (12:10)
[2022-01-08] MEDS ORDERED: KETOROLAC 30 MG/ML VIAL IM ONE (12:10)
[2022-01-08] MEDS ORDERED: MIRABULK PO (13:41)
[2022-01-08] MEDS ORDERED: ONDA-188 PO (13:41)
[2022-01-08] MEDS ORDERED: ROBAC PO (13:41)
[2022-01-08] MEDS ORDERED: IBUP-2213 PO (13:41)
[2022-01-08] MEDS ORDERED: KETOROLAC 30 MG/ML VIAL ONE (13:50)
[2022-01-08] MEDS ORDERED: ONDANSETRON 4 MG ODT ONE (13:50)
--- NOTE | 2022-01-08 14:11 | NUR ---
UNABLE TO LOCATE PT IN ER OR OUTSIDE FOR TX
[2022-01-08 15:03] VITALS: BP 124/70
--- NOTE | 2022-01-08 15:04 | NUR ---
PT LEFT WITHOUT DC PAPERWORK
== END 2022-01-08 15:04 | disposition home or self-care (01) ==
LOC: MED 09:53
DX: J10.1 Influenza due to other identified influenza virus with other respiratory manifestations (principal); Z20.822 Contact with and (suspected) exposure to COVID-19; K59.00 Constipation, unspecified; E11.9 Type 2 diabetes mellitus without complications; I10 Essential (primary) hypertension; Z79.4 Long term (current) use of insulin; Z79.899 Other long term (current) drug therapy
CPT/HCPCS: 87426; 87804; 99283; J1885; Q0162

== ENCOUNTER 2022-05-03 09:17 | Inpatient (IN) | payer OTHER ==
[~2022-05-03] VITALS: Ht 165.1 cm; Wt 91.6 kg
[~2022-05-03 09:17] MED LIST changes: +IBUP-2213 PO; +MIRABULK PO; +ONDA-188 PO; +ROBAC PO
[2022-05-03 09:26] VITALS: BP 155/91
--- NOTE | 2022-05-03 10:22 | NUR ---
PT UNABLE TO PROVIDE URINE SAMPLE AT THIS TIME. PT HAS URINE CUP AND BOTTLE OF WATER.
[2022-05-03 12:04] LABS: BASOPHILS # (AUTO) 0.1 K/uL (0.00-0.22); BASOPHILS % (AUTO) 0.8 % (0.0-2.0); EOSINOPHILS # (AUTO) 0.2 K/uL (0-0.4); EOSINOPHILS % (AUTO) 1.7 % (0.0-4.0); HEMATOCRIT 41.8 % (36-48); HEMOGLOBIN 14.4 g/dL (12.0-16.0); MEAN CORPUSCULAR HEMOGLOBIN 30 pg (27-31); MEAN CORPUSCULAR HGB CONC 34 g/dL (33-37); MEAN CORPUSCULAR VOLUME 85.8 fL (80-94); MONOCYTES # (AUTO) 0.5 K/uL (0.8-1.0); MONOCYTES % (AUTO) 5.8 % (1.7-9.3); NEUTROPHILS # (AUTO) 6.7 K/uL (1.8-7.7); NEUTROPHILS % (AUTO) 70.7 % (42.2-75.2); PLATELET COUNT (AUTO) 265 K/uL (140-450); RED BLOOD CELL COUNT(AUTO) 4.87 MIL/uL (4.20-5.40); RED CELL DISTRIBUTION WIDTH 12.7 % (11.6-13.7); WHITE BLOOD COUNT (AUTO) 9.4 K/uL (4.8-10.8)
[2022-05-03 12:26] LABS: ALBUMIN 3.6 g/dL (3.4-5.0); CARBON DIOXIDE 26.1 mmol/L (21-32); CREATININE 0.8 mg/dL (0.6-1.3); POTASSIUM 4.1 mmol/L (3.5-5.1); TOTAL BILIRUBIN 0.4 mg/dL (0.0-1.0)
[2022-05-03] MEDS ORDERED: MORPHINE SULFATE 4 MG/ML SYR IVP ONE (13:10)
[2022-05-03] MEDS ORDERED: cefTRIAXone 1,000 MG in DEXT 5% MINI-BAG PLUS 50 ML IV ONE (13:10)
--- NOTE | 2022-05-03 13:32 | NUR ---
PT AMBULATED TO ER BED 3
[2022-05-03] MEDS ORDERED: ACETAMINOPHEN 325 MG TAB PO PRN (13:35)
[2022-05-03] MEDS ORDERED: KCL 20 MEQ IN 100 mL PREMIX 200 ML IV PRN (13:35)
[2022-05-03] MEDS ORDERED: MAG SULF 2000 MG/WATER PREMIX 50 ML IV PRN (13:35)
[2022-05-03] MEDS ORDERED: MAGNESIUM OXIDE 400 MG TAB PO PRN (13:35)
[2022-05-03] MEDS ORDERED: POTASSIUM CHLORIDE 10 MEQ TABER PO PRN (13:35)
[2022-05-03] MEDS ORDERED: HYDROcodone/APAP 5/325 MG 1 TAB TAB PO PRN (13:35)
[2022-05-03 13:40] LABS: APPEARANCE,URINE CLEAR (CLEAR); BILIRUBIN,URINE NEGATIVE (NEGATIVE); BLOOD, URINE TRACE-I (NEGATIVE); COLOR,URINE YELLOW (YELLOW); LEUKOCYTE ESTERASE ,URINE NEGATIVE (NEGATIVE); NITRITE, URINE NEGATIVE (NEGATIVE); PH,URINE 6.5 (5.0-9.0); UGLUCOSE 3+ (NEGATIVE)
--- NOTE | 2022-05-03 13:41 | NUR ---
46 Y/O FEMALE C/O (INTERNAL) ABSCESS TO EPIGASTRIC REGION OF ABDOMEN X2 WEEKS. [facility] AND WAS GIVEN KEFLEX AND MOTRIN. PT REPORTS IT HAS NOT IMPROVED. +REDNESS NOTED. DENIES N/V/D/DYSURIA. PT REPORTS FEELING CONSTIPATED, LAST BM X4 DAYS AGO. PT REPORTS SHE IS SCARED TO PUSH D/T PAIN. PT REPORTS CHILLS BUT DENIES FEVER. PT A/O X4 WITH EVEN AND UNLABORED RESPIRATIONS
--- NOTE | 2022-05-03 13:54 | NUR ---
PT TAKEN TO CT VIA [facility] WITH TECH
[2022-05-03] MEDS ORDERED: diphenhydrAMINE 50 MG/ML VIAL ONE (14:08)
[2022-05-03] MEDS ORDERED: diphenhydrAMINE 50 MG/ML VIAL IVP ONE (14:10)
--- NOTE | 2022-05-03 14:15 | NUR ---
PT BACK FROM CT AND C/O FEELING THAT HER THROAT IS CLOSING AND ITS HARD TO SWALLOW. DR ROSSI AWARE. BENADRYL 25 MG GIVEN. SPO2 97% RR 12. ON ASSESSMENT, THROAT DOES NOT APPEAR SWOLLEN.
[2022-05-03] MEDS ORDERED: cefTRIAXone 1,000 MG VIAL ONE (15:02)
[2022-05-03] MEDS ORDERED: DEXTROSE 50% 50 ML SYR IVP PRN (15:25)
[2022-05-03] MEDS: NACL 0.9% 1,000 ML IV SCH ×2 (15:30→21:18)
--- NOTE | 2022-05-03 15:39 | NUR ---
PT PROVIDED WITH SNACKS. PT ON CARDIAC/O2 MONITOR. ALL NEEDS MET AT THIS TIME
[2022-05-03] MEDS ORDERED: hydrALAZINE 10 MG TAB PO PRN (15:55)
--- NOTE | 2022-05-03 17:07 | NUR ---
ROUNDED ON PT. PT LAYING IN BED, EVEN AND UNLABORED RESPIRATIONS NOTED. MAINTENCE FLUIDS INFUSING. ALL NEEDS MET AT THIS TIME.
[2022-05-03] MEDS: BLOOD GLUCOSE MONITORING 1 DEV DEV FS SCH ×2 (17:30→21:17)
[2022-05-03] MEDS: NIFEdipine 60 MG TABER PO SCH (17:40)
[2022-05-03] MEDS: INSULIN LISPRO SLIDING SCALE 100 UNITS/ML VIAL SUBQ PRN (17:42)
--- NOTE | 2022-05-03 19:26 | NUR ---
REPORT GIVEN TO FLETCHER SHORE. TRANSFER OF CARE AT THIS TIME.
--- NOTE | 2022-05-03 19:30 | NUR ---
Patient received on bed lying comfortably and awake. Alert and oriented x4. No acute distress. Respirations even and unlabored.
--- NOTE | 2022-05-03 19:52 | NUR ---
Called MedSurg Unit and gave report to FLETCHER White.
[2022-05-03 20:20] VITALS: BP 143/83
--- NOTE | 2022-05-03 20:20 | NUR ---
RECEIVED PT IN BED AWAKE,ALERT AND ORIENTED X 4. PT ABLE TO AMBULATE WITH STEADY GAIT. DENIES PAIN AT THIS TIME. DENIES SHORTNESS OF BREATH. SKIN WARM AND DRY TO TOUCH. SAFETY PRECAUTIONS IN PLACE, CALL LIGHT IN REACH.
--- NOTE | 2022-05-03 20:25 | NUR ---
Patient will be admitted to care of Dr. Culp. Admited to [facility]. Will go to room 104A. Belongings list completed. Report to FLETCHER White.
[2022-05-03 20:37] LABS: BARBITURATE, URINE NEGATIVE ng/ml (NEG <=200); BENZODIAZEPINE, URINE NEGATIVE ng/mL (NEG <=200); CANNABINOID, URINE POSITIVE ng/mL (NEG <=50); COCAINE, URINE NEGATIVE ng/mL (NEG <=300); OPIATE, URINE NEGATIVE ng/mL (NEG <=2000); PHENCYCLIDINE SCREEN,URINE NEGATIVE ng/mL (NEG <=25)
[2022-05-03] MEDS: metroNIDAZOLE 500 MG/NS PREMIX 100 ML IV SCH (21:18)
[2022-05-03] MEDS: ONDANSETRON 4 MG/2 ML VIAL IVP PRN (22:16)
[2022-05-03] MEDS: MORPHINE SULFATE 2 MG/ML SYR IVP PRN (23:23)
[2022-05-04] VITALS: BP 135/71
[2022-05-04] MEDS: MORPHINE SULFATE 2 MG/ML SYR IVP PRN ×3 (03:18→12:55)
[2022-05-04] MEDS: ONDANSETRON 4 MG/2 ML VIAL IVP PRN ×3 (03:18→12:55)
[2022-05-04] MEDS: metroNIDAZOLE 500 MG/NS PREMIX 100 ML IV SCH ×2 (04:10→12:54)
--- NOTE | 2022-05-04 06:04 | NUR ---
CALL PLACED TO DR. MORALES, PT REQUESTING SOMETHING FOR ANXIETY AND FEELS NAUSEOUS, HARIS GIVEN AT 0318. AWAITING CALL BACK.
[2022-05-04] MEDS: BLOOD GLUCOSE MONITORING 1 DEV DEV FS SCH ×2 (06:31→11:38)
[2022-05-04] MEDS: INSULIN LISPRO SLIDING SCALE 100 UNITS/ML VIAL SUBQ PRN ×2 (06:32→11:39)
--- NOTE | 2022-05-04 06:40 | NUR ---
PATIENT IS NOW CURRENTLY ASLEEP. NO N/V NOTED AT THIS TIME. ALL NEEDS ATTENDED TO. SAFETY PRECAUTIONS MAITAINED DURING THE SHIFT. CALL LIGHT REMAINS WITHIN REACH.
[2022-05-04 06:49] LABS: BASOPHILS # (AUTO) 0.1 K/uL (0.00-0.22); BASOPHILS % (AUTO) 0.5 % (0.0-2.0); EOSINOPHILS # (AUTO) 0.1 K/uL (0-0.4); EOSINOPHILS % (AUTO) 0.5 % (0.0-4.0); HEMOGLOBIN 15.6 g/dL (12.0-16.0); LYMPHOCYTES # (AUTO) 1.6 K/uL (2.5-16.5); LYMPHOCYTES % (AUTO) 14.7 % (20.5-51.1); MEAN CORPUSCULAR HEMOGLOBIN 29 pg (27-31); MEAN CORPUSCULAR HGB CONC 34 g/dL (33-37); MEAN CORPUSCULAR VOLUME 85.9 fL (80-94); MONOCYTES # (AUTO) 0.4 K/uL (0.8-1.0); MONOCYTES % (AUTO) 3.8 % (1.7-9.3); NEUTROPHILS % (AUTO) 80.5 % (42.2-75.2); PLATELET COUNT (AUTO) 322 K/uL (140-450); RED BLOOD CELL COUNT(AUTO) 5.36 MIL/uL (4.20-5.40); RED CELL DISTRIBUTION WIDTH 12.4 % (11.6-13.7); WHITE BLOOD COUNT (AUTO) 11.2 K/uL (4.8-10.8)
--- NOTE | 2022-05-04 07:10 | NUR ---
ASSUMED CONTINUITY OF CARE. INITIAL ASSESSMENT DONE. KEEP COMFORTABLE ON BED. CALL LIGHT WITHIN REACH.
[2022-05-04 07:23] LABS: ALBUMIN 4.1 g/dL (3.4-5.0); ANION GAP 17.2 (8-16); CARBON DIOXIDE 22.6 mmol/L (21-32); CREATININE 0.8 mg/dL (0.6-1.3); POTASSIUM 3.8 mmol/L (3.5-5.1); TOTAL BILIRUBIN 0.8 mg/dL (0.0-1.0)
[2022-05-04 07:25] LABS: CHOL/HDL RATIO 3.7 (1-4.5)
[2022-05-04 08:00] VITALS: BP 151/82
[2022-05-04] MEDS: NIFEdipine 60 MG TABER PO SCH (08:55)
--- NOTE | 2022-05-04 09:17 | NUR ---
PATIENT HAS BEEN SCREENED AND CATEGORIZED MODERATE NUTRITION RISK. PATIENT WILL BE SEEN WITHIN 3-5 DAYS OF ADMISSION. REVIEWED BY JUVENCIO GORDON RD
--- NOTE | 2022-05-04 09:21 | NUR ---
DR. STYLES CAME SPOKE TO PT. AND PT. SISTER AT BEDSIDE.
[2022-05-04] MEDS ORDERED: [UNRECOGNIZED DRUG - CODE] MC (13:28)
[2022-05-04] MEDS ORDERED: METF-346 PO (13:28)
[2022-05-04] MEDS ORDERED: ACET-9525 PO (13:28)
[2022-05-04] MEDS ORDERED: LANC1COM6 MC (13:28)
[2022-05-04] MEDS ORDERED: NIFE60TA39 PO (13:28)
[2022-05-04] MEDS ORDERED: DOXY-487 PO (13:28)
--- NOTE | 2022-05-04 15:10 | NUR ---
D/C HOME VIA WHEELCHAIR. NO C/O PAIN. IN STABLE CONDITION.
--- NOTE | 2022-05-06 16:16 | NUR ---
MAYANK DHILLON CALLED DR BEST'S OFFICE LOCATED AT [address] [id number] AND SPOKE WITH ELANA WHO INFORMED ME PT HAD ALREADY MADE APPOINTMENT FOR 05/05/2022 AT 0900
== END 2022-05-04 15:10 | disposition home or self-care (01) | DRG 385 ==
LOC: MED 09:17 → MMU 13:38 → MTU 18:07
PROVIDERS: ADMIT Internal Medicine; ATTEND Internal Medicine
DX: L72.3 Sebaceous cyst (principal); E87.1 Hypo-osmolality and hyponatremia; E11.9 Type 2 diabetes mellitus without complications; E66.9 Obesity, unspecified; N83.209 Unspecified ovarian cyst, unspecified side; I10 Essential (primary) hypertension; Z20.822 Contact with and (suspected) exposure to COVID-19; F12.90 Cannabis use, unspecified, uncomplicated; Z68.33 Body mass index [BMI] 33.0-33.9, adult; Z90.49 Acquired absence of other specified parts of digestive tract; Z90.710 Acquired absence of both cervix and uterus
CPT/HCPCS: 36415; 71045; 76856; 80053; 80305; 81003; 82948; 83036; 83605; 83735; 83880; 84484; 85025; 87040; 87081; 87086; 93005; 96365; 96375; 99285; J0696; J1200; J1815; J2270; J2405; J3490; J7060; Q0092; Q9967

== ENCOUNTER 2023-07-28 16:39 | Emergency (ER) | payer OTHER ==
[~2023-07-28] VITALS: Ht 165.1 cm; Wt 127.0 kg
[~2023-07-28 16:39] MED LIST changes: +ACET-9525 PO; -AMOX-1230 PO; +DOXY-487 PO; -GABA300C PO; -HUMSLIDE; -IBUP-2213 PO; -INSU100S22 SC; +LANC1COM6 MC; +METF-346 PO; -MIRABULK PO; +NIFE60TA39 PO; -ONDA-188 PO; -ROBAC PO; +[UNRECOGNIZED DRUG - CODE] MC
[2023-07-28 16:47] VITALS: BP 206/99; PULSE 95; RESP 18; TEMP 97.3; O2SAT 99
[2023-07-28 17:21] LABS: APPEARANCE,URINE CLEAR (CLEAR); BILIRUBIN,URINE NEGATIVE (NEGATIVE); BLOOD, URINE 1+ (NEGATIVE); COLOR,URINE YELLOW (YELLOW); LEUKOCYTE ESTERASE ,URINE NEGATIVE (NEGATIVE); NITRITE, URINE NEGATIVE (NEGATIVE); PH,URINE 6.5 (5.0-9.0); PROTEIN,URINE 2+ (NEGATIVE); UGLUCOSE 3+ (NEGATIVE); UROBILINOGEN,URINE 0.2 EU/dL (0.2 - 1)
[2023-07-28 17:26] LABS: BACTERIA,URINE None Seen /HPF (None Seen); MUCUS,URINE None Seen /LPF (None Seen); RBC,URINE 0-5 /HPF (0-5); SQUAMOUS EPITHELIAL CELL,UR >10 (MANY) /LPF (0-3 (FEW)); WBC,URINE 0-5 /HPF (0-5)
[2023-07-28] MEDS: KETOROLAC 30 MG/ML VIAL IM ONE (17:33)
[2023-07-28 17:42] LABS: BASOPHILS # (AUTO) 0.1 K/uL (0.00-0.22); BASOPHILS % (AUTO) 1.1 % (0.0-2.0); EOSINOPHILS # (AUTO) 0.2 K/uL (0-0.4); EOSINOPHILS % (AUTO) 2.7 % (0.0-4.0); HEMATOCRIT 43.1 % (36-48); HEMOGLOBIN 15.3 g/dL (12.0-16.0); LYMPHOCYTES # (AUTO) 2.4 K/uL (2.5-16.5); MEAN CORPUSCULAR HEMOGLOBIN 30 pg (27-31); MEAN CORPUSCULAR HGB CONC 36 g/dL (33-37); MEAN CORPUSCULAR VOLUME 83.9 fL (80-94); MONOCYTES # (AUTO) 0.5 K/uL (0.8-1.0); MONOCYTES % (AUTO) 5.7 % (1.7-9.3); NEUTROPHILS % (AUTO) 61.5 % (42.2-75.2); PLATELET COUNT (AUTO) 317 K/uL (140-450); RED BLOOD CELL COUNT(AUTO) 5.13 MIL/uL (4.20-5.40); RED CELL DISTRIBUTION WIDTH 12.9 % (11.6-13.7); WHITE BLOOD COUNT (AUTO) 8.1 K/uL (4.8-10.8)
[2023-07-28 18:02] LABS: ANION GAP 12.4 (8-16); CALCIUM 8.6 mg/dL (8.5-10.1); CARBON DIOXIDE 25.5 mmol/L (21-32); POTASSIUM 3.9 mmol/L (3.5-5.1)
[2023-07-28 18:18] LABS: ALBUMIN 3.2 g/dL (3.4-5.0); TOTAL BILIRUBIN 0.7 mg/dL (0.0-1.0); TOTAL PROTEIN, SERUM 7.3 g/dL (6.4-8.2)
[2023-07-28] MEDS ORDERED: KETOROLAC 30 MG/ML VIAL IM ONE (20:35)
[2023-07-28 21:00] VITALS: BP 138/61; PULSE 90; RESP 18; TEMP 97.6; O2SAT 99
== END 2023-07-28 21:00 | disposition home or self-care (01) ==
LOC: MED 16:39
DX: R10.84 Generalized abdominal pain (principal); K59.00 Constipation, unspecified; I10 Essential (primary) hypertension; E11.9 Type 2 diabetes mellitus without complications; Z79.4 Long term (current) use of insulin; Z79.899 Other long term (current) drug therapy; Z90.49 Acquired absence of other specified parts of digestive tract
CPT/HCPCS: 36415; 74177; 80048; 80076; 81001; 81025; 82150; 83690; 85025; 96372; 99285; J1885; Q9967

== ENCOUNTER 2023-08-28 09:27 | Emergency (ER) | payer OTHER ==
[~2023-08-28] VITALS: Ht 165.1 cm; Wt 81.6 kg
[2023-08-28 09:31] VITALS: BP 170/91; PULSE 86; RESP 18; TEMP 97.5; O2SAT 97
[2023-08-28] MEDS: IBUPROFEN 600 MG TAB PO ONE (10:33)
[2023-08-28] MEDS: cephALEXin 500 MG CAP PO ONE (10:33)
[2023-08-28] MEDS ORDERED: CEPH-588 PO (10:42)
[2023-08-28] MEDS ORDERED: IBUP-2218 PO (10:42)
[2023-08-28] MEDS ORDERED: ACET-10509 PO (10:42)
[2023-08-28 10:48] VITALS: BP 170/91; PULSE 86; RESP 18; TEMP 97.5; O2SAT 97
== END 2023-08-28 10:48 | disposition home or self-care (01) ==
LOC: MED 09:27
DX: L03.113 Cellulitis of right upper limb (principal); E11.9 Type 2 diabetes mellitus without complications; I10 Essential (primary) hypertension; Z79.84 Long term (current) use of oral hypoglycemic drugs; Z79.1 Long term (current) use of non-steroidal anti-inflammatories (NSAID); Z79.2 Long term (current) use of antibiotics; Z79.899 Other long term (current) drug therapy
CPT/HCPCS: 73130; 82948; 99283; Q0092

== ENCOUNTER 2023-09-18 14:47 | Emergency (ER) | payer OTHER ==
[~2023-09-18] VITALS: Ht 165.1 cm; Wt 87.5 kg
[~2023-09-18 14:47] MED LIST changes: +ACET-10509 PO; +CEPH-588 PO; +IBUP-2218 PO
[2023-09-18 15:01] VITALS: BP 175/81; PULSE 76; RESP 20; TEMP 97.7; O2SAT 99
[2023-09-18] MEDS ORDERED: IBUP-2213 PO (15:28)
[2023-09-18] MEDS ORDERED: OFLO5SOL27 RIGHT EAR (15:28)
[2023-09-18 15:30] VITALS: O2SAT 99
[2023-09-18] MEDS: IBUPROFEN 600 MG TAB PO ONE (15:37)
[2023-09-18 15:52] VITALS: BP 144/82; PULSE 77; RESP 16; TEMP 98.1; O2SAT 99
[2023-09-19] MEDS ORDERED: NAPR-337 PO (20:48)
[2023-09-19] MEDS ORDERED: CIPR500T4 PO (20:48)
== END 2023-09-18 15:52 | disposition home or self-care (01) ==
LOC: MED 14:47
DX: H60.91 Unspecified otitis externa, right ear (principal); J45.909 Unspecified asthma, uncomplicated; Z90.49 Acquired absence of other specified parts of digestive tract; Z98.890 Other specified postprocedural states; Z90.710 Acquired absence of both cervix and uterus; Z79.899 Other long term (current) drug therapy
CPT/HCPCS: 82948; 99283

== ENCOUNTER 2023-09-19 16:49 | Emergency (ER) | payer OTHER ==
[~2023-09-19] VITALS: Ht 165.1 cm; Wt 87.5 kg
[~2023-09-19 16:49] MED LIST changes: +IBUP-2213 PO; +OFLO5SOL27 RIGHT EAR
[2023-09-19 18:20] VITALS: BP 144/84; PULSE 78; RESP 16; TEMP 98.3; O2SAT 100
[2023-09-19] MEDS ORDERED: cefTRIAXone 1,000 MG VIAL ONE (20:32)
[2023-09-19] MEDS ORDERED: LIDOCAINE MPF 1% 5 ML ONE (20:33)
[2023-09-19] MEDS: KETOROLAC 60 MG/2 ML VIAL IM ONE (20:41)
[2023-09-19] MEDS: cefTRIAXone 1,000 MG in LIDOCAINE MPF 1% 2.1 ML IM ONE (20:41)
[2023-09-19] MEDS ORDERED: NAPR-337 PO (20:48)
[2023-09-19] MEDS ORDERED: CIPR500T4 PO (20:48)
== END 2023-09-19 21:20 | disposition home or self-care (01) ==
LOC: MED 16:49
DX: H66.91 Otitis media, unspecified, right ear (principal); E11.9 Type 2 diabetes mellitus without complications; Z79.899 Other long term (current) drug therapy
CPT/HCPCS: 96372; 99284; J0696; J1885; J2001